=== PATIENT | male | born 1965 | race Caucasian/White ===

== ENCOUNTER 2017-09-05 06:03 | Inpatient (IN) | payer OTHER ==
[2017-09-05] VITALS (7 sets, daily range): BP systolic 103–177; BP diastolic 68–99; PULSE 76–104; TEMP 36.3–36.9; O2SAT 90–97; Ht 190.5 cm; Wt 193.2 kg
[~2017-09-05] VITALS: Ht 190.5 cm; Wt 193.2 kg
[2017-09-05] MEDS ORDERED: OPTIRAY 320 IV PRN (06:30)
[2017-09-05 06:35] LABS: BASO % 0.3 %; BASO ABS # 0.02 K/uL (0-0.2); EOS % 2.3 %; EOS ABS # 0.16 K/uL (0-0.5); HEMATOCRIT 47.5 % (42-52); HEMOGLOBIN 16.2 g/dL (14.0-18.0); IG# 0.02 K/uL (0.00-0.02); LYMPH % 22.7 %; LYMPH ABS # 1.58 K/uL (1.2-3.4); MEAN CELL VOLUME 86.2 fL (80-100); MEAN CORPUSCULAR HEMOGLOBIN 29.4 pg (25-34); MEAN CORPUSCULAR HGB CONC 34.1 g/dl (32-36); MEAN PLATELET VOLUME 9.4 fL (7.4-10.4); MONO % 10.1 %; NEUT % 64.3 %; NEUT ABS # 4.48 K/uL (1.4-6.5); PLATELET COUNT 193 K/uL (130-400); RED CELL DISTRIBUTION WIDTH CV 13.7 % (11.5-14.5); RED CELL DISTRIBUTION WIDTH SD 43.1 fL (36.4-46.3); WHITE BLOOD COUNT 6.96 K/uL (4.8-10.8)
[2017-09-05 06:37] LABS: ISTAT CREATININE 1.2 mg/dl (0.6-1.3); ISTAT IONIZED CALCIUM 1.08 mmol/l (1.12-1.32); ISTAT POTASSIUM 3.8 mEq/L (3.3-5.0)
[2017-09-05 06:48] LABS: PTT PATIENT 28.2 SECONDS (21.0-31.0)
[2017-09-05 06:55] LABS: ALBUMIN 3.7 gm/dl (3.4-5.0); CALCIUM 8.6 mg/dl (8.5-10.1); CREATININE 1.28 mg/dl (0.60-1.40); TOTAL PROTEIN 8.6 gm/dl (6.4-8.2)
[2017-09-05] MEDS ORDERED: IPRA1AER2 INH (06:55)
[2017-09-05] MEDS ORDERED: ASPI325T39 PO (06:55)
[2017-09-05] MEDS ORDERED: SYMIN160 INH (06:55)
[2017-09-05 06:59] LABS: POTASSIUM 3.7 mmol/L (3.5-5.1)
--- NOTE | 2017-09-05 07:00 | EMERGENCY ROOM VISIT NOTE ---
ED Visit Note First contact with patient: 06:12 I have personally evaluated and examined this patient. I agree with assessment and plan of Gwendolyn Enriquez PA-C. Diaphoretic, hypoxic, tachycardic male with substernal chest pain and Shortness of breath arrives from home. History of PE last on Coumadin 7 years ago. Admits he has been quite inactive over last few months. No travel. CT showing bilateral extensive PEs. Not hypotensive. He is oxygenating much better on NC O2 but is still diaphoretic and unwell appearing. Discussed at length heparin risks/benefits with patient, including head, chest, aorta, abdominal, gi bleeding, etc. He is willing to proceed with heparin given acuity of his symptoms and risks of worsening.
[2017-09-05] MEDS ORDERED: HEPARIN 25000 UNIT/500 ML D5W ONE (07:02)
[2017-09-05] MEDS ORDERED: HEPARIN SOD 5000 UNIT/0.5 ML CARP ONE (07:02)
--- NOTE | 2017-09-05 07:15 | DIAGNOSTIC IMAGING REPORT ---
CHEST CTA for AORTIC DISSECTION CT DOSE: 3015.20 mGy.cm HISTORY: Short of breath. TECHNIQUE: Multiaxial CT images of the chest were performed both before and after the intravenous administration of contrast to evaluate the aorta. Maximal intensity projection images were also obtained. A dose lowering technique was utilized adhering to the principles of ALARA. COMPARISON STUDY: Chest 09/05/2017. FINDINGS: Noncontrast imaging through the chest shows no evidence for an intramural hematoma. Normal caliber thoracic aorta with no evidence for dissection. Extensive bilateral pulmonary emboli involving the distal main pulmonary arteries and extending into the majority of the lobar and segmental pulmonary arteries. There is also a saddle embolus identified. There is associated moderate to severe right-sided heart strain. No pleural or pericardial effusions. No mediastinal or hilar lymphadenopathy. Hepatic steatosis. A 4.5 cm cyst within the left kidney. Normal adrenal glands. No fractures within the visualized osseous structures. No pneumothorax. The central airways are patent. A few groundglass densities seen within the right lower lobe posteriorly and within the lingula. This is nonspecific and could be due to mild dependent change or possibly developing pulmonary infarcts. IMPRESSION: 1. Extensive bilateral pulmonary emboli including a saddle embolus with associated right-sided heart strain. 2. A few small groundglass densities within the lingula and right lower lobe which may be due to dependent change or developing pulmonary infarcts. 3. No evidence for an aortic dissection. 4. These findings were called to Dr. Shoemaker at 7:12 AM on 09/05/2017. Electronically signed by: Abad Sahu M.D. 09/05/2017 7:14 AM Dictated Date/Time: 09/05/2017 7:07 AM
--- NOTE | 2017-09-05 08:06 | DIAGNOSTIC IMAGING REPORT ---
CHEST ONE VIEW PORTABLE HISTORY: Atypical CHEST PAIN COMPARISON: Chest 04/17/2016. FINDINGS: The heart is mildly enlarged. Mild interstitial thickening which the chronic. No new focal lung consolidations. No pleural effusions. No pneumothorax. IMPRESSION: 1. Mild cardiomegaly. 2. Mild interstitial thickening which may be chronic. Electronically signed by: Abad Sahu M.D. 09/05/2017 8:05 AM Dictated Date/Time: 09/05/2017 8:03 AM
[2017-09-05] MEDS ORDERED: DEXTROSE 50% 50 ML SYR IV PRN (08:15)
[2017-09-05] MEDS ORDERED: GLUCAGON FOR INJ 1 MG VIAL SQ PRN (08:15)
[2017-09-05] MEDS ORDERED: GLUCOSE 40% GEL 15 GM TUBE PO PRN (08:15)
[2017-09-05] MEDS ORDERED: ACETAMINOPHEN 325 MG TAB PO PRN (08:15)
[2017-09-05] MEDS ORDERED: POLYETHYLENE (MIRALAX) 17 GM PACK PO PRN (08:15)
[2017-09-05] MEDS ORDERED: ONDANSETRON INJ 2 MG/ML 2 ML VIAL IV PRN (08:15)
[2017-09-05] MEDS ORDERED: GLUCOSE 10 TABS/TUBE PO PRN (08:15)
--- NOTE | 2017-09-05 08:15 | NUR ---
A/ID: 52 year old male in ED.c/o substernal chest pain, Radiology report of pulmonary emboli. Possible admission/observation. Admission Assessment done. Code Word/Fall Agreement reviewed with patient and completed. Continued care in ED by MODE Jo.
[2017-09-05] MEDS ORDERED: OXYCODONE/ACETAMINOPHEN 5-325 TAB PO PRN (08:30)
[2017-09-05] MEDS ORDERED: IPRATROPIUM BROMIDE/ALBUTEROL respimat INH INH PRN (08:30)
--- NOTE | 2017-09-05 08:32 | Critical Care Consultation ---
Critical Care Consultation Date of Consultation: Sep 05, 2017. 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 He started to feel bad approximately 3-4 days ago and then developed worsening cough chest pain shortness of breath. He presented to [facility] emergency department for further evaluation. A CT scan was obtained which revealed bilateral PEs. I was requested to evaluate the patient further. 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 [employer] ) Allergies Coded Allergies: No Known Allergies (Unverified , 09/05/17) Home Medications Scheduled Aspirin (Aspirin Ec), 325 MG PO DAILY Budesonide/Formoterol Fumarate (Symbicort 160/4.5 Inhaler ), 2 PUFFS INH BID Scheduled PRN Ipratropium-Albuterol (Combivent Respimat), 1 PUFFS INH QID PRN for Shortness of Breath Current Inpatient Medications Current Inpatient Medications Medications (Trade) Dose Ordered Sig/Junito Route Start Time Stop Time Status Last Admin Dose Admin Ioversol (Optiray 320) 125 ml UD PRN IV 09/05/17 06:30 09/09/17 06:29 Review of Systems 10 point review of systems has been obtained and is otherwise negative Constitutional: + weakness, + fatigue Eyes: No worsening of vision, No eye pain, No redness, No discharge, No diplopia, No problem reported Respiratory: + cough, + shortness of breath, + dyspnea on exertion, + dyspnea at rest, No sputum, No wheezing, No hemoptysis Cardiovascular: + chest pain, + orthopnea, No edema Musculoskeletal: + joint pain Genitourinary - Male: No hematuria, No dysuria, No urinary frequency, No urinary urgency, No urinary hesitancy, No urinary retention, No urinary incontinence, No penile discharge, No lesions, No impotence, No problem reported Neurologic: No memory loss, No paralysis, No weakness, No numbness/tingling, No vertigo, No balance problems, No problem reported Endocrine: + fatigue Hematologic / Lymphatic: + clotting problems, No swollen lymph nodes, No night sweats Integumentary: No rash Physical Exam Date Time Temp Pulse Resp B/P (MAP) Pulse Ox O2 Delivery O2 Flow Rate FiO2 09/05/17 07:52 103 24 125/89 93 Nasal Cannula 3.0 09/05/17 07:16 100 24 120/87 92 Room Air 09/05/17 06:57 101 09/05/17 06:51 101 23 154/91 92 Nasal Cannula 09/05/17 06:15 93 Nasal Cannula 3.0 09/05/17 06:15 93 Nasal Cannula 3.0 09/05/17 06:05 36.4 118 26 129/80 87 Room Air General Appearance: WD/WN, no apparent distress Head: normocephalic, atraumatic Eyes: PERRLA Neck: normal range of motion, no tenderness, trachea midline, no stridor Respiratory: breath sounds normal Cardiovasular: irregular rate Abdomen: non tender, no rebound, no masses, other (rotund) Upper Extremities: no edema Lower Extremities: edema (+1) Edema: Bilateral LE (1+) Pulses: radial (R) (2+), radial (L) (2+) Neuro: alert, oriented x 3, normal motor exam Psychiatric: normal affect Laboratory Results Last 24 Hours Test 09/05/17 06:20 09/05/17 06:24 09/05/17 07:09 White Blood Count 6.96 K/uL Red Blood Count 5.51 M/uL Hemoglobin 16.2 g/dL Hematocrit 47.5 % Mean Corpuscular Volume 86.2 fL Mean Corpuscular Hemoglobin 29.4 pg Mean Corpuscular Hemoglobin Concent 34.1 g/dl Platelet Count 193 K/uL Mean Platelet Volume 9.4 fL Neutrophils (%) (Auto) 64.3 % Lymphocytes (%) (Auto) 22.7 % Monocytes (%) (Auto) 10.1 % Eosinophils (%) (Auto) 2.3 % Basophils (%) (Auto) 0.3 % Neutrophils # (Auto) 4.48 K/uL Lymphocytes # (Auto) 1.58 K/uL Monocytes # (Auto) 0.70 K/uL Eosinophils # (Auto) 0.16 K/uL Basophils # (Auto) 0.02 K/uL RDW Standard Deviation 43.1 fL RDW Coefficient of Variation 13.7 % Immature Granulocyte % (Auto) 0.3 % Immature Granulocyte # (Auto) 0.02 K/uL Prothrombin Time 10.5 SECONDS Prothromb Time International Ratio 1.0 Activated Partial Thromboplast Time 28.2 SECONDS Partial Thromboplastin Ratio 1.1 Sodium Level 133 mmol/L Potassium Level 3.7 mmol/L Chloride Level 99 mmol/L Carbon Dioxide Level 23 mmol/L Anion Gap 11.0 mmol/L 16.0 mmol/L Blood Urea Nitrogen 16 mg/dl Creatinine 1.28 mg/dl Est Creatinine Clear Calc Drug Dose 125.3 ml/min Estimated GFR () 73.6 Estimated GFR (Non- 63.5 BUN/Creatinine Ratio 12.5 Random Glucose 168 mg/dl Calcium Level 8.6 mg/dl Total Bilirubin 1.0 mg/dl Direct Bilirubin 0.2 mg/dl Aspartate Amino Transf (AST/SGOT) 50 U/L Alanine Aminotransferase (ALT/SGPT) 26 U/L Alkaline Phosphatase 86 U/L Troponin I 0.357 ng/ml Pro-B-Type Natriuretic Peptide 86 pg/ml Total Protein 8.6 gm/dl Albumin 3.7 gm/dl Lipase 195 U/L Bedside Hemoglobin 15.6 g/dl Bedside Hematocrit 46 % Bedside Sodium 136 mEq/L Bedside Potassium 3.8 mEq/L Bedside Chloride 98 mEq/L Bedside Total CO2 26 mEq/l Bedside Blood Urea Nitrogen 18 mg/dl Bedside Creatinine 1.2 mg/dl Bedside Glucose (other) 177 mg/dl Bedside Ionized Calcium (Shea) 1.08 mmol/l Bedside Troponin I 0.230 ng/ml Diagnostic Results I have reviewed the images of the CT scan dated 09/05/2017 as well as the radiology report Assessment & Plan PLAN: Neuro: Chronic musculoskeletal pain * Patient currently takes Ultram Resp: Submassive pulmonary embolism * PESI score 113 (class IV) * on heparin infusion * I suspect this is acute on chronic pulmonary embolism given his prior history and several days of prodrome * Discussed risks and benefits of catheter directed thrombolysis versus admission and systemic anticoagulation * Joint medical decision making the patient opts for systemic anticoagulation * At risk for pulmonary hypertension, venous thromboembolic disease and likely undiagnosed HAN CV: Elevated troponins * Echocardiogram Fluids/Renal: Generous fluids to maintain preload Heme: Venous thromboembolic disease * Will require lifelong anticoagulation Endocrine: Hyperglycemia * Reported history of diabetes * Stopped taking medication secondary to made him feel bad * Check hemoglobin A1c Discussed with Dr. Ingram. Will admit to telemetry. Patient CODE STATUS: full. If patient experienced cardiac arrest would give 10 mg IV TPA over 2 minutes followed up by 40 mg over 2 hours.
--- NOTE | 2017-09-05 09:05 | NUR ---
A Note:Patient alert and oriented X 4, Denies Chest pain thus far, Neri, recovers w/ rest and oxygen, continues on Oxygen @ 2L/Nc, Pox Mid 90's noted. Heparin Gtt Infusing @ 48 ML/HR/2400 Units per protocol. BSG 174, No Diabetic Imbalance noted. See EMR for ED admission assessment by MODE Chung ADT. court monitor applied on, Tachycardia, Heart rate Low to Mid 100's noted. Will continue to monitor and update MD as needed. Call frsaer within reach.
--- NOTE | 2017-09-05 09:22 | History and Physical ---
History & Physical Date & Time of Service: Sep 05, 2017 at 08:43 Chief Complaint: Chest Pain,O2 Down To 75 Primary Care Physician: Sylvia Watson History of Present Illness Source: patient This patient is a 52-year-old male with a history of morbid obesity, pulmonary embolism from sedentary lifestyle in 2009 treated with Coumadin 3 months, unspecified chronic lung disease (not COPD, asthma, states "collapsed lungs at the bases"), hyperlipidemia, osteoarthritis, and diet controlled diabetes mellitus type 2, who presents to the ER with worsening shortness of breath over the last 3 days with mildly productive cough, followed by sudden onset of massive chest pain this morning. He checked his pulse ox at home and it was in the 70s. In the ER, he was found to have extensive bilateral pulmonary emboli along with a saddle embolus. He had evidence of associated moderate to severe right heart strain on CT scan, as well as evidence of right heart strain on ECG. He was acutely hypoxic in the low 80s which improved with supplemental oxygen. His blood pressure was above 100 systolic. At the time I saw him, his chest pain was a 5/10 and located in the substernal region, his shortness of breath was improved on oxygen. He reports increased right leg pain and swelling in the last few days. He is otherwise been feeling well other than his chronic respiratory issues. No recent flulike symptoms, no fevers, no abdominal pain, no new joint pains or myalgias. The tree tapping laborer was consulted in the ER and his PESI score was calculated to be 113 which gives him a high risk of mortality at 30 days of 4-11%. However, because of his history of likely chronic venous thromboembolic disease, he was tolerating his massive clot burden. We discussed with the patient the option of catheter directed thrombectomy requiring transfer to a tertiary care center versus TPA, versus heparinization alone, all with similar outcomes most likely in his scenario. The patient wishes to stay at this hospital and received IV heparin. He is admitted for bilateral pulmonary emboli with saddle embolus. 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 Diabetes mellitus type 2-diet controlled Hyperlipidemia Osteoarthritis of the knees Unspecified chronic lung disease-" collapsed lungs at the bases" PSH: None Family History Mom recently passed with the age 75 from COPD Brother-healthy Social History Smoking Status: Never Smoker Smokeless Tobacco Use: Yes Alcohol Use: none (last use in 2005) Drug Use: none Marital Status: single (and no children) Housing status: lives alone Occupational Status: retired (has not worked since 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; was in the [employer] prior to that), other (former [employer] ) Allergies Coded Allergies: No Known Allergies (Unverified , 09/05/17) Home Medications Scheduled Aspirin (Aspirin Ec), 325 MG PO DAILY Budesonide/Formoterol Fumarate (Symbicort 160/4.5 Inhaler ), 2 PUFFS INH BID Scheduled PRN Ipratropium-Albuterol (Combivent Respimat), 1 PUFFS INH QID PRN for Shortness of Breath Review of Systems Constitutional: No fever, No chills Eyes: No problem reported ENT: No problem reported Respiratory: + cough, + sputum, + shortness of breath Cardiovascular: + chest pain, + edema Abdomen: No pain, No nausea, No vomiting, No diarrhea, No constipation, No GI bleeding Musculoskeletal: + joint pain (chronic in the knees) Genitourinary - Male: No problem reported Neurologic: No problem reported Psychiatric: No problem reported Endocrine: No problem reported Hematologic / Lymphatic: No abnormal bleeding/bruising (no history of bleeding at all, has never had a colonoscopy) Integumentary: No bleeding, No problem reported Allergic / Immunologic: No problem reported Physical Exam Vital Signs Date Time Temp Pulse Resp B/P (MAP) Pulse Ox O2 Delivery O2 Flow Rate FiO2 09/05/17 08:27 102 22 124/91 96 Nasal Cannula 3.0 09/05/17 08:15 93 Nasal Cannula 3.0 09/05/17 07:52 103 24 125/89 93 Nasal Cannula 3.0 09/05/17 07:16 100 24 120/87 92 Room Air 09/05/17 06:57 101 09/05/17 06:51 101 23 154/91 92 Nasal Cannula 09/05/17 06:15 93 Nasal Cannula 3.0 09/05/17 06:15 93 Nasal Cannula 3.0 09/05/17 06:05 36.4 118 26 129/80 87 Room Air General Appearance: no apparent distress, + obese (morbidly) Head: normocephalic, atraumatic Eyes: normal inspection, EOMI, sclerae normal ENT: hearing grossly normal, pharynx normal Neck: trachea midline Respiratory/Chest: no respiratory distress, no accessory muscle use, + decreased breath sounds (at the bases bilaterally) Cardiovascular: no murmur, + tachycardia (with regular rhythm), + pertinent finding (right leg with 2+ pitting edema and tenderness in the calf, left leg no edema) Abdomen/GI: normal bowel sounds, non tender, soft (and obese) Back: normal inspection Extremities/Musculoskelatal: + swelling (as above) Neurologic/Psych: no motor/sensory deficits, alert, normal mood/affect, oriented x 3 Skin: normal color, warm/dry, no rash Diagnostics Laboratory Results Results Past 24 Hours Test 09/05/17 06:20 09/05/17 06:24 09/05/17 07:09 Range/Units White Blood Count 6.96 4.8-10.8 K/uL Red Blood Count 5.51 4.7-6.1 M/uL Hemoglobin 16.2 14.0-18.0 g/dL Hematocrit 47.5 42-52 % Mean Corpuscular Volume 86.2 80-100 fL Mean Corpuscular Hemoglobin 29.4 25-34 pg Mean Corpuscular Hemoglobin Concent 34.1 32-36 g/dl Platelet Count 193 130-400 K/uL Mean Platelet Volume 9.4 7.4-10.4 fL Neutrophils (%) (Auto) 64.3 % Lymphocytes (%) (Auto) 22.7 % Monocytes (%) (Auto) 10.1 % Eosinophils (%) (Auto) 2.3 % Basophils (%) (Auto) 0.3 % Neutrophils # (Auto) 4.48 1.4-6.5 K/uL Lymphocytes # (Auto) 1.58 1.2-3.4 K/uL Monocytes # (Auto) 0.70 0.11-0.59 K/uL Eosinophils # (Auto) 0.16 0-0.5 K/uL Basophils # (Auto) 0.02 0-0.2 K/uL RDW Standard Deviation 43.1 36.4-46.3 fL RDW Coefficient of Variation 13.7 11.5-14.5 % Immature Granulocyte % (Auto) 0.3 % Immature Granulocyte # (Auto) 0.02 0.00-0.02 K/uL Prothrombin Time 10.5 9.0-12.0 SECONDS Prothromb Time International Ratio 1.0 0.9-1.1 Activated Partial Thromboplast Time 28.2 21.0-31.0 SECONDS Partial Thromboplastin Ratio 1.1 Sodium Level 133 136-145 mmol/L Potassium Level 3.7 3.5-5.1 mmol/L Chloride Level 99 98-107 mmol/L Carbon Dioxide Level 23 21-32 mmol/L Anion Gap 11.0 16.0 16-25 mmol/L Blood Urea Nitrogen 16 7-18 mg/dl Creatinine 1.28 0.60-1.40 mg/dl Est Creatinine Clear Calc Drug Dose 125.3 ml/min Estimated GFR () 73.6 Estimated GFR (Non- 63.5 BUN/Creatinine Ratio 12.5 10-20 Random Glucose 168 70-99 mg/dl Calcium Level 8.6 8.5-10.1 mg/dl Total Bilirubin 1.0 0.2-1 mg/dl Direct Bilirubin 0.2 0-0.2 mg/dl Aspartate Amino Transf (AST/SGOT) 50 15-37 U/L Alanine Aminotransferase (ALT/SGPT) 26 12-78 U/L Alkaline Phosphatase 86 45-117 U/L Troponin I 0.357 0-0.045 ng/ml Pro-B-Type Natriuretic Peptide 86 0-900 pg/ml Total Protein 8.6 6.4-8.2 gm/dl Albumin 3.7 3.4-5.0 gm/dl Lipase 195 73-393 U/L Bedside Hemoglobin 15.6 14.0-18.0 g/dl Bedside Hematocrit 46 42-52 % Bedside Sodium 136 135-144 mEq/L Bedside Potassium 3.8 3.3-5.0 mEq/L Bedside Chloride 98 101-112 mEq/L Bedside Total CO2 26 24-31 mEq/l Bedside Blood Urea Nitrogen 18 7-18 mg/dl Bedside Creatinine 1.2 0.6-1.3 mg/dl Bedside Glucose (other) 177 70-99 mg/dl Bedside Ionized Calcium (Shea) 1.08 1.12-1.32 mmol/l Bedside Troponin I 0.230 0-0.045 ng/ml Diagnostic Radiology Chest x-ray images personally reviewed by me and agree with report: 1. Mild cardiomegaly. 2. Mild interstitial thickening which may be chronic. CTA chest personally reviewed by me and agree with report: 1. Extensive bilateral pulmonary emboli including a saddle embolus with associated right-sided heart strain. 2. A few small groundglass densities within the lingula and right lower lobe which may be due to dependent change or developing pulmonary infarcts. 3. No evidence for an aortic dissection. EKG Sinus tachycardia at 105, evidence of RVH and right axis deviation, inferior infarct Impression Assessment and Plan This patient is a 52-year-old male with a history of morbid obesity, pulmonary embolism from sedentary lifestyle in 2009 treated with Coumadin 3 months, unspecified chronic lung disease (not COPD, asthma, states "collapsed lungs at the bases"), hyperlipidemia, osteoarthritis, and diet controlled diabetes mellitus type 2, who presents to the ER with worsening shortness of breath over the last 3 days with mildly productive cough, followed by sudden onset of massive chest pain and worsening shortness of breath. He was found to have extensive bilateral pulmonary emboli along with a saddle embolus. He had evidence of associated moderate to severe right heart strain on CT scan, as well as evidence of right heart strain on ECG. He was acutely hypoxic in the low 80s which improved with supplemental oxygen. His blood pressure was above 100 systolic. He reports increased right leg pain and swelling in the last few days. Extensive bilateral PEs/saddle embolus/likely CTED-The tree tapping laborer was consulted in the ER and his PESI score was calculated to be 113 which gives him a high risk of mortality at 30 days of 4-11%. However, because of his history of likely chronic venous thromboembolic disease, he was tolerating his massive clot burden. We discussed with the patient the option of catheter directed thrombectomy requiring transfer to a tertiary care center versus TPA, versus heparinization alone, all with similar outcomes most likely in his scenario. The patient wishes to stay at this hospital and received IV heparin. He has no history of bleeding issues. proBNP is actually normal at 86 -Admit to telemetry unit -Begin IV heparinization as well as overlap therapy with Coumadin and he will need lifelong anticoagulation at this point -Check echo to assess RV and LV function -Supplemental oxygen as needed and wean as tolerated to keep pulse ox greater than 92% -Normal saline at 100 ML's per hour to keep blood pressure up and watch for worsening heart failure -Consult pulmonary -Venous Dopplers were ordered in the ER and are still [id number] resolved -Percocet for pain control and watch for hypotension - will need cardiopulmonary rehabilitation after discharge -Follow CBC, PT/INR/PTT, will need overlap therapy for 5 days unless a contraindication arises -Follow chest x-ray -If acutely decompensates, would consider half dose TPA and urgent consultation with tree tapping laborer Elevated troponin-most likely due to massive PE and heart strain, no previous history of CAD -Trend troponin -Is on heparin drip -Checking echocardiogram -Continue aspirin 81 mg daily -Add on statin, check lipid panel -Follow ECG daily -Consider cardiology consult if significantly worsens Diabetes mellitus type 2-diet controlled -Check hemoglobin A1c in the morning -Accu-Cheks with meals and at bedtime, SSI Hyperlipidemia-checking lipid panel and adding statin as above Chronic lung disease-suspect mixed restrictive due to body habitus and obstructive given that his symptoms improved with bronchodilators -Continue home Cymbalta and Combivent when necessary Prophylaxis-heparin drip Disposition-eventually to home when medically stable FULL CODE Level of Care Telemetry Advanced Directives Existing Living Will: No Existing Power of Dairy Farmworker: No Resuscitation Status FULL RESUSCITATION VTE Prophylaxis VTE Risk Assessment Done? Y/N: Yes Risk Level: High Given or contraindicated: Unfractionated heparin SQ Note Total Time: Critical Care 30 - 74 minutes Additional Copies To Sylvia Watson
[2017-09-05] MEDS ORDERED: ASPIRIN 81 MG ECTAB PO ONE (09:30)
[2017-09-05] MEDS: SODIUM CHLORIDE 0.9% 1000ML 1,000 ML IV SCH ×2 (09:41→19:39)
[2017-09-05] MEDS: BUDESONIDE/FORMOTEROL FUMARATE 160/4.5 60 PUFFS/INHALER INH SCH ×2 (09:49→20:38)
[2017-09-05] MEDS: INSULIN ASPART 100 UNITS/ML 3 ML PEN SC SCH ×3 (11:03→20:37)
--- NOTE | 2017-09-05 12:00 | NUR ---
A Note: Systems unchanged thus far, Vss. See EMR for full assessment. environmental monitoring technician applied on, Tachycardia, Heart rate Mid 100's noted. Will continue to monitor and update MD as needed. Call fraser within reach.
--- NOTE | 2017-09-05 13:33 | Pulmonary Consultation ---
History General Date of Service: Sep 05, 2017. Stated Complaint: Pulmonnary Embolism HPI The patient is a 52 year old male who presents to [facility] with complaints of Pulmonnary Embolism. The patient's primary care provider is Sylvia Watson. Mr. Fuentes is a 52-year-old male with past medical history of previous morbid obesity with a BMI of 56.5, obstructive sleep apnea noncompliant with CPAP, unprovoked pulmonary embolism in 2009, nephrolithiasis and osteoarthritis who presents to the ER this morning with acute shortness of breath, dyspnea on exertion associated with diarrhea paresis and midsternal chest pain upon awakening. He describes pain as pressure-like. Home pulse oximetry showed a showed an SaO2 of 76%. He states that he is baseline SaO2 ranges between 88-92% . He admits to being more sedentary over the last 3 days after hunting season. He denies any fevers, chills, or cough. He denies any sick contacts or recent travel. He denies any family history or personal history of thrombophilia, trauma, hospitalization, or recent surgery. He does admit to intermittent paroxysmal nocturnal dyspnea, orthopnea and lower extremity swelling. He states that right lower extremity has increased in size greater than the left lower extremity. He denies any palpitations, lightheadedness, dizziness or near syncope/syncope episodes. He states over the last month, he has had decreased appetite associated with weight loss but is unable to quantify. He denies any genitourinary or bowel complaints. Upon arrival to the ER his temperature was 36.4, pulse 118, respiratory rate 26 , blood pressure 129/80, SaO2 87% on room air. He was subsequently placed on 3 L nasal cannula with improvement to 93%. Laboratory data showed normal CBC. Chemistry showed a sodium of 133, BUN 16, creatinine 1.28. Troponin 0.357 and BNP 86. Chest x-ray showed mild cardiomegaly and chronic interstitial thickening. CT of the chest with contrast showed extensive bilateral pulmonary emboli involving the distal main pulmonary arteries and extending into the lobar and segmental pulmonary arteries. Saddle embolus identified with moderate to severe right sided heart strain. A few groundglass opacities were seen in the right lower lobe and within the lingula. At the time of my evaluation, patient states that he is a little bit better. He continues to have persistent midsternal nonradiating chest pain. Historian: patient Onset: just prior to arrival Review of Systems Constitutional: reports: as stated in HPI Eyes: reports: as stated in HPI ENT: reports: as stated in HPI Cardiovascular: reports: as stated in HPI Gastrointestinal: reports: as stated in HPI Genitourinary - Male: reports: as stated in HPI Musculoskeletal: reports: as stated in HPI, arthralgias Integumentary: reports: as stated in HPI Neurologic: reports: as stated in HPI Psychiatric: reports: as stated in HPI Endocrine: as stated in HPI Hematologic / Lymphatic: as stated in HPI Allergic / Immunologic: as stated in HPI All Other Symptoms All Other Systems: Reviewed and Negative Past Medical History Past Medical History: Pulmonary embolus Nephrolithiasis Morbid obesity Obstructive sleep apnea Family History Mother 06/03/2017-vent dependent respiratory failure secondary to COPD Father . Had history of COPD. from complications of hip fracture. Social History Lives alone. Denies any alcohol or illicit drug use. Denies any tobacco use. 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 Hx Tobacco Use In Past Year?: No Smoking Status: Never Smoker Marital status: single (and no children) Housing status: lives alone Occupational Status: retired (has not worked since 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; was in the [employer] prior to that), other (former [employer] ) Allergies Coded Allergies: No Known Allergies (Unverified , 09/05/17) Current Medications Reported Home Medications Medications Dose Route/Sig Max Daily Dose Days Date Category Aspirin Ec (Aspirin) 325 Mg Tab 325 Mg PO DAILY 09/05/17 Reported Combivent Respimat (Ipratropium-Albuterol) 1 Aer Aer 1 Puffs INH QID PRN 09/05/17 Reported Symbicort 160/4.5 Inhaler (Budesonide/Formoterol Fumarate) Aero 2 Puffs INH BID 09/05/17 Reported Physical Physical Exam Vital Signs: Date Time Temp Pulse Resp B/P (MAP) Pulse Ox O2 Delivery O2 Flow Rate FiO2 09/05/17 11:30 36.3 102 20 134/80 (98) 90 3.0 09/05/17 09:05 36.4 104 20 120/93 (102) 93 Nasal Cannula 2.0 09/05/17 08:27 102 22 124/91 96 Nasal Cannula 3.0 09/05/17 08:15 93 Nasal Cannula 3.0 09/05/17 07:52 103 24 125/89 93 Nasal Cannula 3.0 09/05/17 07:16 100 24 120/87 92 Room Air 09/05/17 06:57 101 09/05/17 06:51 101 23 154/91 92 Nasal Cannula 09/05/17 06:15 93 Nasal Cannula 3.0 09/05/17 06:15 93 Nasal Cannula 3.0 09/05/17 06:05 36.4 118 26 129/80 87 Room Air General Appearance: uncomfortable, other (morbidly obese male, no acute respiratory distress) Head: NORMOCEPHALIC, ATRAUMATIC Eyes: PERRLA, NO DISCHARGE, EOMI, SCLERAE NORMAL ENT: NORMAL MOUTH EXAM, NORMAL THROAT EXAM, poor dentition Neck: NORMAL RANGE OF MOTION, NO TENDERNESS, TRACHEA MIDLINE, NO STRIDOR, NO LYMPHADENOPATHY Respiratory: other (diminished breath sounds bilaterally secondary to obese body habitus) Cardiovasular: REGULAR RATE/RHYTHM, NORMAL S1S2 Abdomen: NON TENDER, NORMAL BOWEL SOUNDS, other (obese abdomen) Back: NORMAL INSPECTION, NO MIDLINE TENDERNESS Upper Extremities: NO EDEMA, NO DEFORMITY, NORMAL ROM Lower Extremities: NO DEFORMITY, NORMAL ROM Edema: RLE (3+), LLE (2+) Pulses: dorsalis pedis (R) Neuro: ALERT, ORIENTED x 3, NORMAL MOTOR EXAM Psychiatric: NORMAL AFFECT, NO SUICIDAL IDEATION, CONTRACTS FOR SAFETY Diagnostics Labs Results Past 24 Hours Test 09/05/17 06:20 09/05/17 06:24 09/05/17 07:09 09/05/17 09:37 Range/Units White Blood Count 6.96 4.8-10.8 K/uL Red Blood Count 5.51 4.7-6.1 M/uL Hemoglobin 16.2 14.0-18.0 g/dL Hematocrit 47.5 42-52 % Mean Corpuscular Volume 86.2 80-100 fL Mean Corpuscular Hemoglobin 29.4 25-34 pg Mean Corpuscular Hemoglobin Concent 34.1 32-36 g/dl Platelet Count 193 130-400 K/uL Mean Platelet Volume 9.4 7.4-10.4 fL Neutrophils (%) (Auto) 64.3 % Lymphocytes (%) (Auto) 22.7 % Monocytes (%) (Auto) 10.1 % Eosinophils (%) (Auto) 2.3 % Basophils (%) (Auto) 0.3 % Neutrophils # (Auto) 4.48 1.4-6.5 K/uL Lymphocytes # (Auto) 1.58 1.2-3.4 K/uL Monocytes # (Auto) 0.70 0.11-0.59 K/uL Eosinophils # (Auto) 0.16 0-0.5 K/uL Basophils # (Auto) 0.02 0-0.2 K/uL RDW Standard Deviation 43.1 36.4-46.3 fL RDW Coefficient of Variation 13.7 11.5-14.5 % Immature Granulocyte % (Auto) 0.3 % Immature Granulocyte # (Auto) 0.02 0.00-0.02 K/uL Prothrombin Time 10.5 9.0-12.0 SECONDS Prothromb Time International Ratio 1.0 0.9-1.1 Activated Partial Thromboplast Time 28.2 21.0-31.0 SECONDS Partial Thromboplastin Ratio 1.1 Sodium Level 133 136-145 mmol/L Potassium Level 3.7 3.5-5.1 mmol/L Chloride Level 99 98-107 mmol/L Carbon Dioxide Level 23 21-32 mmol/L Anion Gap 11.0 16.0 16-25 mmol/L Blood Urea Nitrogen 16 7-18 mg/dl Creatinine 1.28 0.60-1.40 mg/dl Est Creatinine Clear Calc Drug Dose 125.3 ml/min Estimated GFR () 73.6 Estimated GFR (Non- 63.5 BUN/Creatinine Ratio 12.5 10-20 Random Glucose 168 70-99 mg/dl Calcium Level 8.6 8.5-10.1 mg/dl Total Bilirubin 1.0 0.2-1 mg/dl Direct Bilirubin 0.2 0-0.2 mg/dl Aspartate Amino Transf (AST/SGOT) 50 15-37 U/L Alanine Aminotransferase (ALT/SGPT) 26 12-78 U/L Alkaline Phosphatase 86 45-117 U/L Troponin I 0.357 0-0.045 ng/ml Pro-B-Type Natriuretic Peptide 86 0-900 pg/ml Total Protein 8.6 6.4-8.2 gm/dl Albumin 3.7 3.4-5.0 gm/dl Lipase 195 73-393 U/L Bedside Hemoglobin 15.6 14.0-18.0 g/dl Bedside Hematocrit 46 42-52 % Bedside Sodium 136 135-144 mEq/L Bedside Potassium 3.8 3.3-5.0 mEq/L Bedside Chloride 98 101-112 mEq/L Bedside Total CO2 26 24-31 mEq/l Bedside Blood Urea Nitrogen 18 7-18 mg/dl Bedside Creatinine 1.2 0.6-1.3 mg/dl Bedside Glucose (other) 177 70-99 mg/dl Bedside Ionized Calcium (Shea) 1.08 1.12-1.32 mmol/l Bedside Troponin I 0.230 0-0.045 ng/ml Bedside Glucose 174 70-99 mg/dl Diagnostic Radiology CT chest 09/05/2017 IMPRESSION: 1. Extensive bilateral pulmonary emboli including a saddle embolus with associated right-sided heart strain. 2. A few small groundglass densities within the lingula and right lower lobe which may be due to dependent change or developing pulmonary infarcts. 3. No evidence for an aortic dissection. EKG EKG 09/04/2017 Sinus tachycardia 105 bpm Right superior axis deviation Right ventricular hypertrophy Impression Assessment and Plan Morbid obesity Hypoxemia Submassive saddle pulmonary emboli Obstructive sleep apnea Obesity hypoventilation syndrome Deconditioning The patient likely has acute on chronic hypoxic respiratory. His baseline O2 saturation is between 88-92%, lowest SaO2 recorded at home 85%. He now presents with sudden onset of chest pain and worsening hypoxemia and found to have submassive saddle pulmonary emboli. Patient does admit to increased sedentary lifestyle over the last few days which may have precipitated this emboli. He does have known history of obstructive sleep apnea but unable to tolerate CPAP. Due to his body habitus he likely has a component of obesity hypoventilation syndrome as well. In regards to pulmonary embolism, this appears to be the second unprovoked event. CT chest shows increased size of pulmonary artery suggestive of right heart strain. There is some small ground glass opacities seen in the posterior segment of the right lower lobe which may represent infarction. Troponins are elevated. Nonetheless his blood pressure and hemodynamics remained stable. He has responded well to the supplemental oxygen to 3 L. At the current time, recommend that he continue his supplemental oxygen to maintain SaO2 between 88-92%. Continue with heparin drip for now. He may be subsequently transitioned over to Coumadin. He will require lifelong treatment as this is the second unprovoked event. I agree with full hypercoagulable workup. He should have age-appropriate cancer screening as well. He will likely require long-term oxygen therapy upon discharge. Obtain transthoracic echocardiogram. If he should decompensate, recommend administration of TPA. I appreciate the consult. Please contact me if you have any further questions or concerns.
--- NOTE | 2017-09-05 13:35 | DIAGNOSTIC IMAGING REPORT ---
BILATERAL LOWER EXTREMITY VENOUS DOPPLER HISTORY: Pulmonary emboli. Assess for DVT. COMPARISON STUDY: None. FINDINGS: There is normal compressibility, flow, and augmentation within the bilateral lower extremity deep venous systems. IMPRESSION: No DVT within the right or left lower extremity. Electronically signed by: Abad Sahu M.D. 09/05/2017 1:34 PM Dictated Date/Time: 09/05/2017 1:33 PM
--- NOTE | 2017-09-05 13:36 | DIAGNOSTIC IMAGING REPORT ---
BILATERAL UPPER EXTREMITY VENOUS DOPPLER HISTORY: Pulmonary blood. Assess for DVT. COMPARISON STUDY: None. FINDINGS: The internal jugular veins were nonvisualized due to patient positioning. There is normal flow within the bilateral subclavian veins. There is normal flow and compressibility within the bilateral axillary, basilic, brachial, radial, ulnar, and visualized cephalic veins. IMPRESSION: No DVT within the right or left upper extremity. Electronically signed by: Abad Sahu M.D. 09/05/2017 1:35 PM Dictated Date/Time: 09/05/2017 1:34 PM
[2017-09-05] MEDS ORDERED: PERFLUTREN LIPID MICROSPHERE (DEFINITY) IV ONE (14:16)
[2017-09-05] MEDS: STANDARD WARFARIN NOMOGRAM PO SCH (14:36)
[2017-09-05 14:56] LABS: PTT PATIENT 51.1 SECONDS (21.0-31.0)
--- NOTE | 2017-09-05 15:35 | ECHOCARDIOGRAM REPORT ---
*NOTICE TO RECEIVING CONSTITUTION PARTY AGENCY This information is strictly Confidential and protected under [place] law. [place] law prohibits you from making any further disclosure of this information unless further disclosure is expressly permitted by the written consent of the person to whom it pertains or is authorized by law. A general authorization for the release of medical or other information is not sufficient for this purpose. Hospital accepts no responsibility if the information is made available to any other person, INCLUDING THE PATIENT. Interpretation Summary * Name: EDDIE ABRAHAM Study Date: 09/05/2017 01:47 PM BP: 124/91 mmHg * Patient Location: [facility] HR: 102 * : 1965 (M/d/yyyy) Gender: Male Height: 75 in * Age: 52 yrs Ethnicity: [place] Weight: 451 lb * Ordering Physician: Alexandra Ingram * Referring Physician: Self, Referred * Performed By: Ishan Jaimes RDCS * * Reason For Study: Pulmonary Embolism * BSA: 3.1 * -- Conclusions -- * This is a severely limted study due ti the patient's body habitus and the study was done sitting in a chair. Only the parasternals and contrast images are of any diagnostic value. * The left ventricle is grossly normal size. * Ejection Fraction = 60-65%. * Left ventricular systolic function is normal. * Flattened septum is consistent with RV pressure and volume overload. * Severely dilated RV with Akinesis of the RV free wall. * PA pressures could not be assessed Procedure Details * A complete two-dimensional transthoracic echocardiogram was performed (2D, M-mode, Doppler and color flow Doppler). * The study was technically difficult. * There were technical limitations due to patient'sbody habitus * A contrast injection of Definity was performed to improve assessment of LV function. * One vial of Definity ultrasound contrast was diluted in normal saline to a total volume of 10 ml. A total of '2' ml of solution was administered during imaging. * Lot # [id number] of Definity utilized for procedure. * Expiration date . * The attending nurse who injected the contrast agent was MODE Falk. * Contrast was injected into an intravenous site in the left arm. Left Ventricle * The left ventricle is grossly normal size. * There is normal left ventricular wall thickness. * Ejection Fraction = 60-65%. * Left ventricular systolic function is normal. * Flattened septum is consistent with RV pressure/volume overload. Right Ventricle * Severely dilated RV with Akinesis of the RV free wall. Mitral Valve * The mitral valve is grossly normal. Tricuspid Valve * The tricuspid valve is not well visualized, but is grossly normal. * There is trace tricuspid regurgitation. Aortic Valve * The aortic valve is trileaflet. Pericardium/Pleural * There is no pericardial effusion. MMode 2D Measurements and Calculations IVSd 1.1 cm IVSs 1.4 cm LVIDd 4.1 cm LVIDs 2.5 cm LVPWd 1.5 cm LVPWs 1.4 cm IVS/LVPW 0.75 FS 38.0 % EDV(Teich) 73.3 ml ESV(Teich) 22.9 ml EF(Teich) 68.7 % EDV(cubed) 67.9 ml ESV(cubed) 16.2 ml EF(cubed) 76.2 % % IVS thick 24.2 % % LVPW thick -4.99 % LV mass(C)d 199.9 grams LV mass(C)dI 64.5 grams/m\S\2 LV mass(C)s 118.1 grams LV mass(C)sI 38.1 grams/m\S\2 SV(Teich) 50.4 ml SI(Teich) 16.3 ml/m\S\2 SV(cubed) 51.7 ml SI(cubed) 16.7 ml/m\S\2 Ao root diam 3.6 cm Ao root area 10.4 cm\S\2 LA dimension 2.6 cm LA/Ao 0.70 LVAd ap4 10.8 cm\S\2 LVLd ap4 4.8 cm EDV(MOD-sp4) 20.1 ml EDV(sp4-el) 20.5 ml LVAs ap4 5.8 cm\S\2 LVLs ap4 4.6 cm ESV(MOD-sp4) 6.4 ml ESV(sp4-el) 6.3 ml EF(MOD-sp4) 68.2 % EF(sp4-el) 69.5 % LVAd ap2 18.5 cm\S\2 LVLd ap2 5.4 cm EDV(MOD-sp2) 52.7 ml EDV(sp2-el) 53.5 ml LVAs ap2 9.8 cm\S\2 LVLs ap2 4.3 cm ESV(MOD-sp2) 20.0 ml ESV(sp2-el) 19.1 ml EF(MOD-sp2) 62.0 % EF(sp2-el) 64.4 % LVLd %diff 10.6 % EDV(MOD-bp) 34.4 ml LVLs %diff -6.93 % ESV(MOD-bp) 11.6 ml EF(MOD-bp) 66.2 % SV(MOD-sp4) 13.7 ml SI(MOD-sp4) 4.4 ml/m\S\2 SV(MOD-sp2) 32.7 ml SI(MOD-sp2) 10.5 ml/m\S\2 SV(MOD-bp) 22.8 ml SI(MOD-bp) 7.4 ml/m\S\2 SV(sp4-el) 14.2 ml SI(sp4-el) 4.6 ml/m\S\2 SV(sp2-el) 34.5 ml SI(sp2-el) 11.1 ml/m\S\2 Doppler Measurements and Calculations MV E max emmy 35.5 cm/sec MV A max emmy 51.3 cm/sec MV E/A 0.69 MV dec time 0.22 sec Ao V2 max 73.4 cm/sec Ao max PG 2.2 mmHg Ao max PG (full) -0.04 mmHg LV V1 max PG 2.2 mmHg LV V1 max 74.2 cm/sec PA V2 max 62.2 cm/sec PA max PG 1.5 mmHg
[2017-09-05 15:55] LABS: CKMB 3.4 ng/ml (0.5-3.6)
--- NOTE | 2017-09-05 16:00 | NUR ---
A Note: Systems unchanged thus far, Vss. See EMR for full assessment. ekg monitor tech applied on, Tachycardia, Heart rate Mid 100's noted. Will continue to monitor and update MD as needed. Call fraser within reach.
[2017-09-05] MEDS: HEPARIN 25,000 UNIT/500ML D5W 500 ML IV PRN (17:48)
--- NOTE | 2017-09-05 20:00 | NUR ---
A: Pt alert and oriented x4. Resting comfortably in bed upon assessment. Pt denies any pain or SOB at this time on 3L NC, but states that he is TORRES when repositioning in bed. Heparin infusing into L hand IV site at 48ml/hr and NSS @100ml/hr. Pt encouraged to ring for assistance. Will continue to monitor.
[2017-09-05 21:41] LABS: CKMB 2.7 ng/ml (0.5-3.6)
--- NOTE | 2017-09-05 22:10 | EMERGENCY ROOM VISIT NOTE ---
History First contact with patient: 06:12 Chief Complaint: CHEST PAIN Stated Complaint: CHEST PAIN,O2 DOWN TO 75 History of Present Illness The patient is a 52 year old male who presents to the Emergency Room with complaints of shortness of breath for the past few days steadily getting worse with nonproductive cough and chest pain this morning since 5 AM. Chest pain described as pressure, 8 out of 10 midsternal. Nothing makes it better or worse. It does not radiate. Patient denies fever, chills, hemoptysis, back pain, leg pain, abdominal pain. Patient states he is noncompliant with his medications as he does not like to take pills. He has a history of PEs in the past and was advised to continue his Coumadin but declined. He does not smoke. Patient took his pulse ox at home and was in the low 80s. He does not routinely were oxygen. Patient has had a stress test last year was normal per patient and this is done at [facility]. Review of Systems See HPI for pertinent positives & negatives. A total of 10 systems reviewed and were otherwise negative. Past Medical/Surgical History Medical Problems: (1) Pulmonary embolism Diabetes, chronic lung disease with O2 sats only 88-92% on room air, sleep apnea , hyperlipidemia, PEs Social History Smoking Status: Never Smoker Alcohol Use: none Drug Use: none Current/Historical Medications Scheduled Aspirin (Aspirin Ec), 325 MG PO DAILY Budesonide/Formoterol Fumarate (Symbicort 160/4.5 Inhaler ), 2 PUFFS INH BID Scheduled PRN Ipratropium-Albuterol (Combivent Respimat), 1 PUFFS INH QID PRN for Shortness of Breath Physical Exam Vital Signs Date Time Temp Pulse Resp B/P (MAP) Pulse Ox O2 Delivery O2 Flow Rate FiO2 09/05/17 08:15 93 Nasal Cannula 3.0 09/05/17 07:52 103 24 125/89 93 Nasal Cannula 3.0 09/05/17 07:16 100 24 120/87 92 Room Air 09/05/17 06:57 101 09/05/17 06:51 101 23 154/91 92 Nasal Cannula 09/05/17 06:15 93 Nasal Cannula 3.0 09/05/17 06:15 93 Nasal Cannula 3.0 09/05/17 06:05 36.4 118 26 129/80 87 Room Air Physical Exam VITALS: Vitals are noted on the nurse's note and reviewed by myself. Vital signs hypoxic and tachycardic GENERAL: Morbidly obese male diaphoretic working to breathe, in acute distress SKIN: The skin was without rashes, erythema, or bruising. HEAD: Normocephalic atraumatic. EARS: External auditory canals clear, tympanic membranes pearly carlton without erythema or effusion bilaterally. EYES: Pupils equal round and reactive to light and accommodation. Conjunctivae without injection, sclerae without icterus. Extraocular movements intact. NOSE: Patent, turbinates without inflammation or discharge. MOUTH: Mucous membranes moist. Pharynx without erythema or exudate. Uvula midline. Airway patent. Tongue does not deviate. NECK: Supple without nuchal rigidity. No lymphadenopathy. No thyromegaly. Cervical spine is nontender. HEART: Tachycardic rate and rhythm LUNGS: Clear to auscultation bilaterally without wheezes, rales or rhonchi. ABDOMEN: Positive bowel sounds x 4. Normal tympanic percussion. Soft, protuberant, obese, nontender, without masses or organomegaly. Brunner sign negative. No guarding or rebound tenderness. MUSCULOSKELETAL: No muscle atrophy, erythema, noted. NEURO: Patient was alert and oriented to person place and time. Normal sensation to light and sharp touch. No focal neurological deficits. Medical Decision & Procedures Laboratory Results 09/05/17 06:20 Red Blood Count 5.51, Mean Corpuscular Volume 86.2, Mean Corpuscular Hemoglobin 29.4, Mean Corpuscular Hemoglobin Concent 34.1, Mean Platelet Volume 9.4, Neutrophils (%) (Auto) 64.3, Lymphocytes (%) (Auto) 22.7, Monocytes (%) (Auto) 10.1, Eosinophils (%) (Auto) 2.3, Basophils (%) (Auto) 0.3, Neutrophils # (Auto ) 4.48, Lymphocytes # (Auto) 1.58, Monocytes # (Auto) 0.70, Eosinophils # (Auto ) 0.16, Basophils # (Auto) 0.02 09/05/17 06:20 Test 09/05/17 06:20 09/05/17 06:24 09/05/17 07:09 White Blood Count 6.96 K/uL (4.8-10.8) Red Blood Count 5.51 M/uL (4.7-6.1) Hemoglobin 16.2 g/dL (14.0-18.0) Hematocrit 47.5 % (42-52) Mean Corpuscular Volume 86.2 fL (80-100) Mean Corpuscular Hemoglobin 29.4 pg (25-34) Mean Corpuscular Hemoglobin Concent 34.1 g/dl (32-36) Platelet Count 193 K/uL (130-400) Mean Platelet Volume 9.4 fL (7.4-10.4) Neutrophils (%) (Auto) 64.3 % Lymphocytes (%) (Auto) 22.7 % Monocytes (%) (Auto) 10.1 % Eosinophils (%) (Auto) 2.3 % Basophils (%) (Auto) 0.3 % Neutrophils # (Auto) 4.48 K/uL (1.4-6.5) Lymphocytes # (Auto) 1.58 K/uL (1.2-3.4) Monocytes # (Auto) 0.70 K/uL (0.11-0.59) Eosinophils # (Auto) 0.16 K/uL (0-0.5) Basophils # (Auto) 0.02 K/uL (0-0.2) RDW Standard Deviation 43.1 fL (36.4-46.3) RDW Coefficient of Variation 13.7 % (11.5-14.5) Immature Granulocyte % (Auto) 0.3 % Immature Granulocyte # (Auto) 0.02 K/uL (0.00-0.02) Prothrombin Time 10.5 SECONDS (9.0-12.0) Prothromb Time International Ratio 1.0 (0.9-1.1) Est Creatinine Clear Calc Drug Dose 125.3 ml/min Estimated GFR () 73.6 Estimated GFR (Non- 63.5 BUN/Creatinine Ratio 12.5 (10-20) Calcium Level 8.6 mg/dl (8.5-10.1) Total Bilirubin 1.0 mg/dl (0.2-1) Direct Bilirubin 0.2 mg/dl (0-0.2) Aspartate Amino Transf (AST/SGOT) 50 U/L (15-37) Alanine Aminotransferase (ALT/SGPT) 26 U/L (12-78) Alkaline Phosphatase 86 U/L (45-117) Pro-B-Type Natriuretic Peptide 86 pg/ml (0-900) Total Protein 8.6 gm/dl (6.4-8.2) Albumin 3.7 gm/dl (3.4-5.0) Lipase 195 U/L (73-393) Bedside Hemoglobin 15.6 g/dl (14.0-18.0) Bedside Hematocrit 46 % (42-52) Bedside Sodium 136 mEq/L (135-144) Bedside Potassium 3.8 mEq/L (3.3-5.0) Bedside Chloride 98 mEq/L (101-112) Bedside Total CO2 26 mEq/l (24-31) Anion Gap 16.0 mmol/L (16-25) Bedside Blood Urea Nitrogen 18 mg/dl (7-18) Bedside Creatinine 1.2 mg/dl (0.6-1.3) Bedside Glucose (other) 177 mg/dl (70-99) Bedside Ionized Calcium (Shea) 1.08 mmol/l (1.12-1.32) Bedside Troponin I 0.230 ng/ml (0-0.045) Medications Administered Medications (Trade) Dose Ordered Sig/Junito Route Start Time Stop Time Status Last Admin Dose Admin Heparin Sodium/ Dextrose (Heparin 25,000 Unit/500ml D5W) 25,000 unit STK-MED ONCE .ROUTE 09/05/17 07:02 09/05/17 07:03 DC 09/05/17 07:12 25,000 UNIT Heparin Sodium (Porcine) (Heparin Sq 5000 Unit/0.5ml) 10,000 unit STK-MED ONCE .ROUTE 09/05/17 07:02 09/05/17 07:03 DC 09/05/17 07:10 10,000 UNIT ED Course Prior records/ancillary studies reviewed. Triage Nursing notes reviewed. The patient's history was concerning for chest pain. Differential diagnosis: Etiologies such as cardiac ischemia, aortic dissection, pulmonary embolism, pneumonia, pneumothorax, musculoskeletal, infections, pericarditis, myocarditis , esophageal rupture, gastrointestinal, as well as others were entertained. Physical examination: As above. ER treatment provided: Heparin, O2 On reassessment the patient felt better. Diagnostic interpretation by me: The electrocardiogram was normal sinus, right axis deviation, T-wave inversions in V1 and V2, rate of 105. Impression sinus tachycardia with right superior axis deviation T-wave inversions in the anteroseptal leads interpreted by myself The labs revealed elevated troponin I-STAT creatinine 1.2 Imaging studies: Chest x-ray concerning for increased pulmonary congestion without consolidation or pneumothorax per my interpretation CTA concerning for PEs CHEST CTA for AORTIC DISSECTION CT DOSE: 3015.20 mGy.cm HISTORY: Short of breath. TECHNIQUE: Multiaxial CT images of the chest were performed both before and after the intravenous administration of contrast to evaluate the aorta. Maximal intensity projection images were also obtained. A dose lowering technique was utilized adhering to the principles of ALARA. COMPARISON STUDY: Chest 09/05/2017. FINDINGS: Noncontrast imaging through the chest shows no evidence for an intramural hematoma. Normal caliber thoracic aorta with no evidence for dissection. Extensive bilateral pulmonary emboli involving the distal main pulmonary arteries and extending into the majority of the lobar and segmental pulmonary arteries. There is also a saddle embolus identified. There is associated moderate to severe right-sided heart strain. No pleural or pericardial effusions. No mediastinal or hilar lymphadenopathy. Hepatic steatosis. A 4.5 cm cyst within the left kidney. Normal adrenal glands. No fractures within the visualized osseous structures. No pneumothorax. The central airways are patent. A few groundglass densities seen within the right lower lobe posteriorly and within the lingula. This is nonspecific and could be due to mild dependent change or possibly developing pulmonary infarcts. IMPRESSION: 1. Extensive bilateral pulmonary emboli including a saddle embolus with associated right-sided heart strain. 2. A few small groundglass densities within the lingula and right lower lobe which may be due to dependent change or developing pulmonary infarcts. 3. No evidence for an aortic dissection. 4. These findings were called to Dr. Shoemaker at 7:12 AM on 09/05/2017. Electronically signed by: Abad Sahu M.D. Consultation: A consultation was placed with the [facility], hospitalist Dr Sandoval. The case was discussed and diagnostics were reviewed. The patient was evaluated in the ER for further treatment. Exam and history seem consistent with PEs. Patient was immediately started on heparin. Risks involved with the heparin were reviewed with him and patient accepts them. No history of GI bleeding in the past. Patient was reassessed multiple times. Patient was tachycardic and hypoxic. He was immediately started on heparin prior to the official read of the scans. Hypercoagulable workup was ordered. Patient was extremely short of breath and having severe chest pain. He was immediately sent for CAT scan for dissection and PE studies as he was having severe crushing chest pain, hypoxic, diaphoretic and working to breathe. He had a history of PEs. He is noncompliant with his medications. He was morbidly obese. I did have the service secretary's attempt to obtain his stress test from [facility]. Apparently his last stress test was in 2013. By the evaluation outlined above emergent etiologies such as aortic dissection, pneumonia, pneumothorax, infections, pericarditis, myocarditis, gastrointestinal, as well as others were deemed relatively unlikely. The pt informed about the findings as listed above. All questions were answered and pleased with the treatment. Case reviewed with my attending Medical Decision As above Medication Reconcilliation Current Medication List: was personally reviewed by me Blood Pressure Screening Patient's blood pressure: Normal blood pressure Impression Primary Impression: Pulmonary embolism Additional Impression: Elevated troponin Critical Care I have personally spent greater than 30 minutes of critical care time in the direct management of this patient. This includes bedside care, interpretation of diagnostic studies, and testing, discussion with consultants, patient, and family members, and other required patient management activities. This 30 minutes is in excess of all separately billable procedures. Departure Information Dispostion Being Evaluated By Hospitalist Condition FAIR Referrals Sylvia Watson (PCP) Patient Instructions My [facility] Problem Qualifiers Primary Impression: Pulmonary embolism Pulmonary embolism type: saddle Chronicity: acute Acute cor pulmonale presence: with acute cor pulmonale Qualified Codes: I26.02 - Saddle embolus of pulmonary artery with acute cor pulmonale
[2017-09-06] VITALS (7 sets, daily range): BP systolic 106–149; BP diastolic 65–82; PULSE 75–96; TEMP 36.5–36.8; O2SAT 92–96
--- NOTE | 2017-09-06 | NUR ---
A: Patient resting in bed. A&O x4. VSS on 3L N.C. Patient denies chest pain at this time. States he becomes SOB on exertion, accessory muscle use with breathing during exertion. Limited patient activity at this time. NSR on monitor. Heparin infusing at 48mL/hr, NSS infusing at 100mL/hr into LT hand. See EMR for full assessment. Will recheck PTT in AM at 0444, will adjust Heparin per protocol. Call fraser within reach. Will continue to monitor.
[2017-09-06 03:50] LABS: BASO % 0.5 %; BASO ABS # 0.03 K/uL (0-0.2); EOS % 3.4 %; HEMATOCRIT 43.3 % (42-52); HEMOGLOBIN 14.6 g/dL (14.0-18.0); IG# 0.02 K/uL (0.00-0.02); LYMPH % 36.3 %; LYMPH ABS # 2.11 K/uL (1.2-3.4); MEAN CELL VOLUME 86.9 fL (80-100); MEAN CORPUSCULAR HEMOGLOBIN 29.3 pg (25-34); MEAN CORPUSCULAR HGB CONC 33.7 g/dl (32-36); MEAN PLATELET VOLUME 9.6 fL (7.4-10.4); MONO % 11.3 %; MONO ABS # 0.66 K/uL (0.11-0.59); NEUT % 48.2 %; PLATELET COUNT 177 K/uL (130-400); RED CELL DISTRIBUTION WIDTH CV 13.9 % (11.5-14.5); RED CELL DISTRIBUTION WIDTH SD 43.7 fL (36.4-46.3); WHITE BLOOD COUNT 5.82 K/uL (4.8-10.8)
--- NOTE | 2017-09-06 04:00 | NUR ---
A: Patient resting in bed. HOB > 30 degrees. A&O x4. VSS on 3L N.C. NSR on monitor. Assessment unchanged from previous. Patient denies chest pain or shortness of breath at this time. Heparin drip no change per protocol, continue infusion at 48mL/hr. Call fraser within reach.
[2017-09-06 04:10] LABS: CALCIUM 8.5 mg/dl (8.5-10.1); CREATININE 1.3 mg/dl (0.60-1.40); POTASSIUM 3.6 mmol/L (3.5-5.1)
[2017-09-06 04:17] LABS: PTT PATIENT 48.9 SECONDS (21.0-31.0)
[2017-09-06 04:19] LABS: CKMB 3.2 ng/ml (0.5-3.6)
[2017-09-06] MEDS: HEPARIN 25,000 UNIT/500ML D5W 500 ML IV PRN ×2 (04:59→16:52)
[2017-09-06] MEDS: SODIUM CHLORIDE 0.9% 1000ML 1,000 ML IV SCH ×2 (05:00→15:48)
--- NOTE | 2017-09-06 07:18 | DIAGNOSTIC IMAGING REPORT ---
CHEST ONE VIEW PORTABLE CLINICAL HISTORY: Pulmonary Embolism COMPARISON STUDY: 09/05/2017 FINDINGS: The cardiac and mediastinal contours remain stable. There is mild interstitial thickening unchanged the prior study. There is no focal pulmonary consolidation. There are no pleural effusions.[ IMPRESSION: Mild cardiomegaly. Interstitial thickening likely chronic. No acute findings. Electronically signed by: Maurice Mayer M.D. 09/06/2017 7:17 AM Dictated Date/Time: 09/06/2017 7:15 AM
--- NOTE | 2017-09-06 08:00 | NUR ---
A: Assessment complete. Patient resting in bed. No issues at this time. Ate 100% of breakfast. Tolerated well. NSR on the monitor. Denies sob, chest pain. Heparin gtt 48cc/hr. Next PTT 09/07.
[2017-09-06] MEDS: INSULIN ASPART 100 UNITS/ML 3 ML PEN SC SCH ×4 (08:12→20:45)
[2017-09-06] MEDS: BUDESONIDE/FORMOTEROL FUMARATE 160/4.5 60 PUFFS/INHALER INH SCH ×2 (08:12→20:45)
[2017-09-06] MEDS: ATORVASTATIN 40 MG TAB PO SCH (08:13)
[2017-09-06] MEDS: ASPIRIN 81 MG ECTAB PO SCH (08:13)
[2017-09-06 09:51] LABS: CKMB 3.1 ng/ml (0.5-3.6)
--- NOTE | 2017-09-06 10:56 | Hospitalist Progress Note ---
Hospitalist Progress Note Date of Service Sep 06, 2017. (Jerri Mendez PA-C) Subjective Pt evaluation today including: conversation w/ patient, physical exam, chart review, lab review, review of studies, review of inpatient medication list Patient seen and evaluated. No acute events overnight. States he has been noticing SOB over the past couple days prior to his intense CP that brought him to the hospital. States he would still be able to walk about 100 yards but would then have to stop to catch his breath but stated he would make a full recovery at rest. Currently denying CP or SOB. Does have TORRES and states he gets this just walking to the bathroom. States he feels that his LE edema is improved and no leg pain. Has a lymphedema- like edema of lower extremities. He states when he had his previous PE in 2009 they were not able to find the location of the clot. He reports that he was initially recommended to be on life -long blood thinners but he didn't want to because of his job. Currently is retired and agreeing to life-long anticoagulation. He did not require O2 at home and likely will need some on D/C possibly acutely vs life long. He is stable and currently no findings suggesting the need to pursue TPA. Constitutional: No fever, No chills Respiratory: + cough (with deep breathing), + dyspnea on exertion, No sputum , No dyspnea at rest, No hemoptysis Cardiovascular: No chest pain, No palpitations Abdomen: No pain, No nausea, No vomiting, No diarrhea, No constipation Musculoskeletal: No swelling, No calf pain Male : No dysuria Heme: No abnormal bleeding/bruising (Jerri Mendez, KRISC) Medications Current Inpatient Medications Medications (Trade) Dose Ordered Sig/Junito Route Start Time Stop Time Status Last Admin Dose Admin Ioversol (Optiray 320) 125 ml UD PRN IV 09/05/17 06:30 09/09/17 06:29 Miscellaneous Information (Standard Warfarin Nomogram) 1 ea DAILY@14 PO 09/05/17 14:00 10/05/17 13:59 09/05/17 14:36 1 EA Acetaminophen (Tylenol Tab) 650 mg Q4H PRN PO 09/05/17 08:15 10/05/17 08:14 Ondansetron HCl (Zofran Inj) 4 mg Q6H PRN IV 09/05/17 08:15 10/05/17 08:14 Polyethylene (Miralax Powder Packet) 17 gm DAILY PRN PO 09/05/17 08:15 10/05/17 08:14 Insulin Aspart (novoLOG ASPART) SLIDING SCALE If C... ACHS SC 09/05/17 11:00 10/05/17 10:59 09/06/17 08:12 2 UNITS Glucose (Glucose 40% Gel) 15-30 GRAMS 15 GRAMS... UD PRN PO 09/05/17 08:15 10/05/17 08:14 Glucose (Glucose Chew Tab) 4-8 Tablets 4 Tabl... UD PRN PO 09/05/17 08:15 10/05/17 08:14 Dextrose (Dextrose 50% 50ML Syringe) 25-50ML OF 50% DW IV FOR... UD PRN IV 09/05/17 08:15 10/05/17 08:14 Glucagon (Glucagon Inj) 1 mg UD PRN SQ 09/05/17 08:15 10/05/17 08:14 Sodium Chloride 1,000 ml @ 100 mls/hr Q10H IV 09/05/17 09:30 10/05/17 09:29 09/06/17 05:00 100 MLS/HR Oxycodone/ Acetaminophen (Percocet 5-325mg Tab) @ Q4H PRN PO 09/05/17 08:30 09/19/17 08:29 09/05/17 12:43 1 TAB Budesonide/ Formoterol Fumarate (Symbicort 160/ 4.5 Inh) 2 puffs BID INH 09/05/17 09:00 10/05/17 08:59 09/06/17 08:12 2 PUFFS Albuterol/ Ipratropium (Combivent Respimat Inh) 1 puffs QID PRN INH 09/05/17 08:30 10/05/17 08:29 Heparin Sodium/ Dextrose 500 ml @ 48 mls/hr [id number] PRN IV 09/05/17 09:00 10/05/17 08:59 09/06/17 04:59 48 MLS/HR Aspirin (Ecotrin Tab) 81 mg QAM PO 09/06/17 09:00 10/06/17 08:59 09/06/17 08:13 81 MG Atorvastatin Calcium (Lipitor Tab) 40 mg QAM PO 09/06/17 09:00 10/06/17 08:59 09/06/17 08:13 40 MG (Jerri Mendez PA-C) Objective Vital Signs Date Time Temp Pulse Resp B/P (MAP) Pulse Ox O2 Delivery O2 Flow Rate FiO2 09/06/17 08:00 Nasal Cannula 2.0 09/06/17 07:05 36.5 75 20 123/68 (86) 92 Nasal Cannula 2.0 09/06/17 04:00 Nasal Cannula 3.0 09/06/17 02:50 36.7 75 20 106/67 (80) 96 Nasal Cannula 3.0 09/06/17 02:41 112/78 (89) 09/06/17 00:00 Nasal Cannula 3.0 09/05/17 23:40 36.6 76 18 177/99 (125) 97 Room Air 09/05/17 23:15 36.7 84 20 103/68 (80) 94 Nasal Cannula 3.0 09/05/17 20:00 Nasal Cannula 3.0 09/05/17 19:12 36.9 89 18 106/70 (82) 92 Room Air 09/05/17 16:00 Nasal Cannula 3.0 09/05/17 15:30 36.7 93 18 109/69 (82) 97 Nasal Cannula 2.0 09/05/17 12:00 Nasal Cannula 3.0 09/05/17 11:30 36.3 102 20 134/80 (98) 90 3.0 (Jerri Mendez PA-C) Physical Exam General Appearance: no apparent distress, + obese Eyes: sclerae normal ENT: hearing grossly normal Neck: supple, no JVD, trachea midline Respiratory/Chest: no respiratory distress, no accessory muscle use, + decreased breath sounds (bases b/l) Cardiovascular: regular rate, rhythm Abdomen: normal bowel sounds, non tender, soft Extremities: + pertinent finding (trace pitting edema in L ankle) Neurologic/Psychiatric: alert, oriented x 3 Skin: normal color, warm/dry (Jerri Mendez PA-C) Laboratory Results Last 24 Hours Test 09/05/17 11:45 09/05/17 13:38 09/05/17 15:10 09/05/17 16:31 Bedside Glucose 173 mg/dl 139 mg/dl Activated Partial Thromboplast Time 51.1 SECONDS Partial Thromboplastin Ratio 2.0 Total Creatine Kinase 133 U/L Creatine Kinase MB 3.4 ng/ml Creatine Kinase MB Ratio 2.6 Troponin I 1.170 ng/ml Test 09/05/17 20:30 09/05/17 21:07 09/06/17 03:39 09/06/17 06:57 Bedside Glucose 142 mg/dl 140 mg/dl Total Creatine Kinase 133 U/L 163 U/L Creatine Kinase MB 2.7 ng/ml 3.2 ng/ml Creatine Kinase MB Ratio 2.0 2.0 Troponin I 0.788 ng/ml 0.440 ng/ml White Blood Count 5.82 K/uL Red Blood Count 4.98 M/uL Hemoglobin 14.6 g/dL Hematocrit 43.3 % Mean Corpuscular Volume 86.9 fL Mean Corpuscular Hemoglobin 29.3 pg Mean Corpuscular Hemoglobin Concent 33.7 g/dl Platelet Count 177 K/uL Mean Platelet Volume 9.6 fL Neutrophils (%) (Auto) 48.2 % Lymphocytes (%) (Auto) 36.3 % Monocytes (%) (Auto) 11.3 % Eosinophils (%) (Auto) 3.4 % Basophils (%) (Auto) 0.5 % Neutrophils # (Auto) 2.80 K/uL Lymphocytes # (Auto) 2.11 K/uL Monocytes # (Auto) 0.66 K/uL Eosinophils # (Auto) 0.20 K/uL Basophils # (Auto) 0.03 K/uL RDW Standard Deviation 43.7 fL RDW Coefficient of Variation 13.9 % Immature Granulocyte % (Auto) 0.3 % Immature Granulocyte # (Auto) 0.02 K/uL Prothrombin Time 10.9 SECONDS Prothromb Time International Ratio 1.0 Activated Partial Thromboplast Time 48.9 SECONDS Partial Thromboplastin Ratio 1.9 Sodium Level 135 mmol/L Potassium Level 3.6 mmol/L Chloride Level 102 mmol/L Carbon Dioxide Level 30 mmol/L Anion Gap 3.0 mmol/L Blood Urea Nitrogen 15 mg/dl Creatinine 1.30 mg/dl Est Creatinine Clear Calc Drug Dose 123.3 ml/min Estimated GFR () 72.2 Estimated GFR (Non- 62.3 BUN/Creatinine Ratio 11.4 Random Glucose 155 mg/dl Calcium Level 8.5 mg/dl Magnesium Level 2.3 mg/dl Triglycerides Level 147 mg/dl Cholesterol Level 163 mg/dl HDL Cholesterol 27 mg/dl LDL Cholesterol, Calculated 107 mg/dl VLDL Cholesterol, Calculated 29 mg/dl Cholesterol/HDL Ratio 6.0 Test 09/06/17 08:57 Total Creatine Kinase 182 U/L Creatine Kinase MB 3.1 ng/ml Creatine Kinase MB Ratio 1.7 Troponin I 0.334 ng/ml (Jerri Mendez, PA-C) Assessment and Plan Mr. Fuentes is a 52 y/o with PMHx of morbid obesity, Unprovoked PE (2009) treated with Coumadin x 3 months, Unspecified Chronic Lung Diease "collapsed lungs at bases", HLD, OA, Diet Controlled T2DM who was found to have B/L PE and Saddle Embolus with associated mod-severe R heart strain Acute Possibly on Chronic Hypoxic Respiratory Failure 2/2 B/L PE and Saddle Embolus - Superimposed on Unspecified Chronic Lung Disease: Possible CTED - PESI score calculated at 113 - high risk for mortality at 30 days of 4-11% - Given history appears to be tolerated clot burden - patient opted for heparin/ Coumadin instead of transfer to tertiary care or TPA - denies bleeding history - Continue heparin gtt and Coumadin bridge - monitor INR - Echo - EF 60-65%; flattened septum with severely dilated RV with akinesis - Maintian supplemental O2 - will likely need two-step on D/C - Continue IVF at this time - appears euvolemic but this is difficult to completely assess due to body habitus - No signs of acute decompensation at this time - consideration for half dose TPA and model maker fiberglass consultation if this occurs - Pulmonology following - appreciate recommendations Elevated Troponins: Trending Down - Likely in setting of R heart strain and massive clot burden - ASA 81 mg daily - Consideration for cardiology consultation if worsens - will hold off at this time T2DM - Diet Controlled - A1c pending - Continue SSI HLD: - Statin 40 mg daily Chronic Lung Disease - HAN vs Hypoventilation Syndrome - Symbicort 2 puffs BID and Combivent 1 puff QID PRN DVT Prophylaxis: Heparin/Coumadin Code Status: FULL RESUSCITATION Disposition: - Trend INR and monitor - hopeful D/C next 2-3 days and will need two-step prior to D/C - Outpatient cardiopulmonary rehab Continued [facility] stay due to: multiple IV medications needed Discharge planning: home (Jerri Mendez PA-C) Reviewed: Pt Seen/Exam by Me (Radha Odell, ) History Pt is feeling much improved. Still with SOB on exertion only, but better than GO GO DANCER. No chest pain at all and feels fine at rest. Tolerating PO without issue. Agree with HPI/ROS as noted. (Radha Odell, ) General Appearance: no apparent distress, obese Eye Exam: bilateral eye normal inspection, bilateral eye EOMI Respiratory: normal breath sounds, no respiratory distress Cardiovascular: normal peripheral pulses, regular rate, rhythm Gastrointestinal: non tender, soft Extremities: non-tender, no pedal edema Neurologic/Psychiatric: alert, normal mood/affect, oriented x 3 Skin Characteristics: normal color, warm/dry (Radha Odell DO) Assessment/Plan Agree with plan as outlined above Extensive b/l PE with saddle embolus Started on heparin and will bridge to coumadin LE/UE US neg for DVT Pt with hx of R sided PE and also neg for DVT at that time Anticoag panel pending Called by cardiology for abn EKG with T wave inversions now noted--can be related to severe RV strain Pt is feeling overall improved with VSS and trop max of 1.17 with most recent trop of 0.33 at 9am making [place] less likely Continue to monitor Repeat EKG in AM New O2 requirement, wean as able May need 2 step prior to d/c if ongoing needs (Radha Odell, DO)
--- NOTE | 2017-09-06 13:41 | NUR ---
A: Assessment completed. NSR on the monitor. No change in condition. Ate 100% of lunch. Tolerated well. Complains of sob with exertion during ambulation to the bathroom. Educated to ekta for assistance.
[2017-09-06] MEDS: STANDARD WARFARIN NOMOGRAM PO SCH (14:00)
--- NOTE | 2017-09-06 14:53 | NUR ---
case management note. social service consult for D/C planning. met with pt at bedside. pt is A&O and states he lives with his nephew and his nephews girlfriend in a trailer with [address] and is independent with all activities at baseline. he does not have any oxygen or HH services. he states he has CPAP at home but does not wear it. he states he got his supplies for this from [employer], through the [place]. Role of manager case explained. pt states he is planning to return home at D/C and denies the need for any HH services. he is currently requiring 2 L NC. he states he might need O2 at D/C. pt will need weaned off O2 or have 2 step completed prior to D/C to determine O2 needs. If [facility] is required [facility] case management to follow.
[2017-09-06] MEDS ORDERED: WARFARIN SOD 7.5 MG TAB PO SCH (16:00)
--- NOTE | 2017-09-06 16:00 | NUR ---
A: Resting quietly in room. Monitor shows sinus rhythm. Lungs sound diminished. States TORRES. IV Heparin infusing at 2400 units/hr. Coumadin given. Coumadin booklet given to patient. Denies chest pain.
--- NOTE | 2017-09-06 20:00 | NUR ---
A/ID note: Resting quietly in bed. Monitor shows sinus rhythm. Heparin gtt continues at 2400 units/hr. Was given 7.5mg Coumadin today. TORRES. guest services coordinator involved in discharge planning. To go home when INR therapeutic.
[2017-09-07] VITALS (8 sets, daily range): BP systolic 100–137; BP diastolic 54–78; PULSE 71–77; TEMP 36.2–36.8; O2SAT 92–97
--- NOTE | 2017-09-07 | NUR ---
A: Pt alert and oriented x4. Assessment completed, no complaints at this time. Heparin infusing at 48ml/hr and NS at 100ml/hr. Ind in room. Rings appropriately for assistance. NSR noted on the monitor, no acute tele events noted. VSS on 2L O2, Oxygen is not chronic use for pt. Goal set to titrate off oxygen as tolerated. Call fraser left within reach of pt. Will continue to monitor.
[2017-09-07] MEDS: SODIUM CHLORIDE 0.9% 1000ML 1,000 ML IV SCH ×3 (01:48→22:22)
--- NOTE | 2017-09-07 04:00 | NUR ---
A: Pt remains alert and oriented x4. Assessment unchanged. NSR noted on the monitor, no acute changes. IVF continue to infuse as ordered. Heparin infusing at 48ml/hr. VSS on 2L O2. Repeat EKG today? Ind in room. D/C planning in progress.
[2017-09-07 06:40] LABS: HEMATOCRIT 41.6 % (42-52); HEMOGLOBIN 13.9 g/dL (14.0-18.0); MEAN CELL VOLUME 86.3 fL (80-100); MEAN CORPUSCULAR HEMOGLOBIN 28.8 pg (25-34); MEAN CORPUSCULAR HGB CONC 33.4 g/dl (32-36); MEAN PLATELET VOLUME 9.1 fL (7.4-10.4); PLATELET COUNT 167 K/uL (130-400); RED CELL DISTRIBUTION WIDTH CV 13.7 % (11.5-14.5); RED CELL DISTRIBUTION WIDTH SD 43.4 fL (36.4-46.3); WHITE BLOOD COUNT 4.83 K/uL (4.8-10.8)
[2017-09-07 06:57] LABS: INR 1.1 (0.9-1.1)
[2017-09-07 07:04] LABS: PTT PATIENT 51.1 SECONDS (21.0-31.0)
--- NOTE | 2017-09-07 07:10 | DIAGNOSTIC IMAGING REPORT ---
CHEST ONE VIEW PORTABLE CLINICAL HISTORY: 52 years-old Male presenting with Pulmonary Embolism. TECHNIQUE: Portable upright AP view of the chest was obtained. COMPARISON: 09/06/2017. FINDINGS: Atherosclerosis of aortic arch. Cardiac silhouette enlarged. Prominent vasculature in the left upper lobe with relative radiolucency of the left upper lobe parenchyma. Mildly prominent lung markings. No focal opacity. No large effusion or pneumothorax. Osseous structures normal. Upper abdomen normal. IMPRESSION: 1. Asymmetric vascular prominence and prominent lung markings could relate to recent extensive bilateral pulmonary emboli. No focal infiltrate suggests radiographic evidence of pulmonary infarct. 2. Cardiomegaly. Electronically signed by: Matthias Cruz M.D. 09/07/2017 7:08 AM Dictated Date/Time: 09/07/2017 7:06 AM
[2017-09-07 07:44] LABS: HEMOGLOBIN A1C 7.7 % (4.5-5.6)
--- NOTE | 2017-09-07 08:00 | NUR ---
A: Pt a/o x 4, VSS on 2L NC. SR with 1 degree AV block. Denies pain, N/V/D, c/o of TORRES. IVF/heparin gtt infusing. Tolerating diet well. Ambulates independently in room with supervision, gait steady. See EMR for full assessment. Denies further needs at this time. Call fraser and bedside table in reach, bed in lowest position. Continue to monitor.
[2017-09-07] MEDS: BUDESONIDE/FORMOTEROL FUMARATE 160/4.5 60 PUFFS/INHALER INH SCH ×2 (08:10→20:45)
[2017-09-07] MEDS: ASPIRIN 81 MG ECTAB PO SCH (08:11)
[2017-09-07] MEDS: ATORVASTATIN 40 MG TAB PO SCH (08:11)
[2017-09-07] MEDS: INSULIN ASPART 100 UNITS/ML 3 ML PEN SC SCH ×4 (08:17→20:45)
--- NOTE | 2017-09-07 09:57 | Progress Note ---
Subjective Date of Service: Sep 07, 2017. Subjective Pt evaluation today including: conversation w/ patient Pt is still SOB with any exertion, but feels this is improving. No SOB at rest and has not had chest pain since starting tx. Tolerating PO without issue. Pt denies fever, abd pain, n/v/c/d, LE pain or swelling. Problem List Medical Problems: (1) Elevated troponin Status: Acute Review of Systems All Other Systems: Reviewed and Negative Objective Vital Signs Date Time Temp Pulse Resp B/P (MAP) Pulse Ox O2 Delivery O2 Flow Rate FiO2 09/07/17 07:15 36.5 73 18 137/78 (97) 94 2.0 09/07/17 04:08 36.8 72 18 115/74 (88) 92 2.0 09/07/17 04:00 95 Nasal Cannula 2.0 09/07/17 00:00 95 Nasal Cannula 2.0 09/06/17 23:11 36.7 79 20 121/82 (95) 95 2.0 09/06/17 20:00 Nasal Cannula 2.0 09/06/17 19:21 36.6 96 20 149/79 (102) 92 2.0 09/06/17 16:00 Nasal Cannula 2.0 09/06/17 15:41 36.5 79 18 113/65 (81) 93 Nasal Cannula 2.0 09/06/17 12:00 Nasal Cannula 2.0 09/06/17 11:40 36.8 95 22 115/74 (88) 93 Nasal Cannula 2.0 Physical Exam General Appearance: no apparent distress, + obese Eyes: normal inspection, EOMI, sclerae normal Respiratory/Chest: lungs clear, normal breath sounds, + respiratory distress ( pt had just ambulated from the bathroom to his chair and was mildly SOB) Cardiovascular: regular rate, rhythm, no edema Abdomen: non tender, soft Extremities: non-tender, no pedal edema Neurologic/Psychiatric: alert, normal mood/affect, oriented x 3 Skin: normal color, warm/dry Laboratory Results Last 24 Hours Test 09/06/17 11:18 09/06/17 16:35 09/06/17 20:06 09/07/17 06:09 Bedside Glucose 118 mg/dl 109 mg/dl 110 mg/dl White Blood Count 4.83 K/uL Red Blood Count 4.82 M/uL Hemoglobin 13.9 g/dL Hematocrit 41.6 % Mean Corpuscular Volume 86.3 fL Mean Corpuscular Hemoglobin 28.8 pg Mean Corpuscular Hemoglobin Concent 33.4 g/dl RDW Standard Deviation 43.4 fL RDW Coefficient of Variation 13.7 % Platelet Count 167 K/uL Mean Platelet Volume 9.1 fL Prothrombin Time 11.6 SECONDS Prothromb Time International Ratio 1.1 Activated Partial Thromboplast Time 51.1 SECONDS Partial Thromboplastin Ratio 2.0 Test 09/07/17 07:26 Bedside Glucose 123 mg/dl Assessment and Plan 52 y/o M with PMHx of morbid obesity, Unprovoked PE (2009) treated with Coumadin x 3 months, Unspecified Chronic Lung Diease "collapsed lungs at bases" , HLD, OA, Diet Controlled T2DM who was found to have B/L PE and Saddle Embolus with associated mod-severe R heart strain Acute Possibly on Chronic Hypoxic Respiratory Failure 2/2 B/L PE and Saddle Embolus - Superimposed on Unspecified Chronic Lung Disease: Possible CTED - PESI score calculated at 113 - high risk for mortality at 30 days of 4-11% - patient opted for heparin/Coumadin instead of transfer to tertiary care or TPA - denies bleeding history - Continue heparin gtt and Coumadin bridge - monitor INR - Echo - EF 60-65%; flattened septum with severely dilated RV with akinesis - Maintain supplemental O2 - will likely need two-step on D/C - Continue IVF at this time - appears euvolemic but this is difficult to completely assess due to body habitus - No signs of acute decompensation at this time - consideration for half dose TPA and aml analyst consultation if this occurs Anticoag panel pending Elevated Troponins: Trending Down - Likely in setting of R heart strain and massive clot burden - ASA 81 mg daily Abn EKG in the setting of severe R heart strain Pt is feeling overall improved with VSS and trop max of 1.17 with most recent trop of 0.33 at 9am making VT less likely Repeat EKG this AM is improving but still noted, will continue to monitor given clinical improvements and VSS ECHO as above T2DM - Diet Controlled - A1c elevated at 7.7 - Continue SSI HLD: - Statin 40 mg daily Chronic Lung Disease - HAN vs Hypoventilation Syndrome - Symbicort 2 puffs BID and Combivent 1 puff QID PRN DVT Prophylaxis: Heparin/Coumadin Code Status: FULL RESUSCITATION Disposition: - Trend INR and monitor - hopeful D/C next 2-3 days and will need two-step prior to D/C - Outpatient cardiopulmonary rehab Continued [facility] stay due to: multiple IV medications needed Discharge planning: home
--- NOTE | 2017-09-07 12:00 | NUR ---
A: Assessment unchanged. Remains in sinus rhythm with 1st degree AV block. Denies further needs at this time. See EMR for full assessment. Call fraser and bedside table in reach, bed in lowest position. Continue to monitor.
[2017-09-07] MEDS: HEPARIN 25,000 UNIT/500ML D5W 500 ML IV PRN (12:58)
[2017-09-07] MEDS: STANDARD WARFARIN NOMOGRAM PO SCH (14:28)
[2017-09-07] MEDS ORDERED: WARFARIN SOD 10 MG TAB PO SCH (16:00)
--- NOTE | 2017-09-07 16:00 | NUR ---
A Note:Patient alert and oriented X 4, Denies Chest pain thus far, Vss. Heparin Gtt Infusing @ 48 ML/HR/2400 Units per protocol. BSG 93, No Diabetic Imbalance noted. See EMR for full assessment. radiation monitor applied on, NSR, Heart rate Mid 60's noted. Will continue to monitor and update MD as needed. Call fraser within reach.
--- NOTE | 2017-09-07 20:00 | NUR ---
A Note: Systems unchanged thus far, Vss. Denies Chest pain/discomfort thus far. See EMR for full assessment. monitoring engineer applied on, NSR, Heart rate Low 70's noted. Will continue to monitor and update MD as needed. Call fraser within reach.
[2017-09-08] VITALS (7 sets, daily range): BP systolic 122–152; BP diastolic 76–85; PULSE 64–85; TEMP 36.5–36.8; O2SAT 94–97
--- NOTE | 2017-09-08 | NUR ---
A: Received care of pt. at 2245. Pt. A+Ox4. Denies pain or SOB at rest. VSS on 2 L NC. SR with 1st AVB on gl accountant. For full assessment, see EMR. Heparin gtt infusing at 48 ml/hr per protocol, NSS infusing at 100 ml/hr per orders. PTT to be rechecked in AM. Call fraser within reach. Will continue to monitor.
[2017-09-08] MEDS: HEPARIN 25,000 UNIT/500ML D5W 500 ML IV PRN ×3 (00:32→21:31)
--- NOTE | 2017-09-08 04:00 | NUR ---
A: Assessment unchanged, see EMR. Tolerating 2 L NC, dyspneic on exertion, respirations unlabored at rest. 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 Heparin gtt infusing at 48 ml/hr and NSS at 100 ml/hr. PTT to be rechecked in AM. Call fraser within reach.
[2017-09-08 05:18] LABS: INR 1.8 (0.9-1.1)
[2017-09-08 05:28] LABS: PTT PATIENT 63.9 SECONDS (21.0-31.0)
[2017-09-08] MEDS: SODIUM CHLORIDE 0.9% 1000ML 1,000 ML IV SCH ×2 (08:35→17:39)
[2017-09-08] MEDS: ASPIRIN 81 MG ECTAB PO SCH (08:37)
[2017-09-08] MEDS: ATORVASTATIN 40 MG TAB PO SCH (08:37)
[2017-09-08] MEDS: BUDESONIDE/FORMOTEROL FUMARATE 160/4.5 60 PUFFS/INHALER INH SCH ×2 (08:37→20:31)
[2017-09-08] MEDS: INSULIN ASPART 100 UNITS/ML 3 ML PEN SC SCH ×4 (08:41→20:31)
--- NOTE | 2017-09-08 11:39 | NUR ---
Case Management- Met with paktient in room. Patient reports he would like to return home on discharge he is aware he may have to return home on o2. Patient will need a two step before discharge. [facility] but would call to confirm closer to discharge once test is available. CM following
--- NOTE | 2017-09-08 12:00 | NUR ---
A: Assessment unchanged. Remains in NSR. Denies further needs at this time. Call fraser and bedside table in reach, bed in lowest position. Continue to monitor.
[2017-09-08] MEDS: STANDARD WARFARIN NOMOGRAM PO SCH (13:38)
--- NOTE | 2017-09-08 14:27 | Hospitalist Progress Note ---
Hospitalist Progress Note Date of Service Sep 08, 2017. (Jerri Mendez, KRISC) Subjective Pt evaluation today including: conversation w/ patient, physical exam, chart review, lab review, review of studies, review of inpatient medication list Patient seen and evaluated. No acute events overnight. He remained stable in NSR at 60-80 bpm. He is reporting that his TORRES is improving. He states he was able to do morning hygiene with less shortness of breath compared to yesterday. But is reporting more TORRES then baseline. He is still requiring supplemental oxygen. We'll continue to wean as tolerated today. Given his history and likely obesity hypoventilation syndrome it is possible that he normally has lower saturations. Currently INR is 1.8. No signs or symptoms of acute bleeding. He will likely need a 2 step prior to discharge. Constitutional: No fever, No chills Respiratory: + dyspnea on exertion, No dyspnea at rest, No hemoptysis Cardiovascular: No chest pain, No palpitations Abdomen: No pain, No nausea, No vomiting Musculoskeletal: No calf pain Male : No dysuria Heme: No abnormal bleeding/bruising (Jerri Mendez, KRISC) Medications Current Inpatient Medications Medications (Trade) Dose Ordered Sig/Junito Route Start Time Stop Time Status Last Admin Dose Admin Ioversol (Optiray 320) 125 ml UD PRN IV 09/05/17 06:30 09/09/17 06:29 Miscellaneous Information (Standard Warfarin Nomogram) 1 ea DAILY@14 PO 09/05/17 14:00 10/05/17 13:59 09/08/17 13:38 1 EA Acetaminophen (Tylenol Tab) 650 mg Q4H PRN PO 09/05/17 08:15 10/05/17 08:14 Ondansetron HCl (Zofran Inj) 4 mg Q6H PRN IV 09/05/17 08:15 10/05/17 08:14 Polyethylene (Miralax Powder Packet) 17 gm DAILY PRN PO 09/05/17 08:15 10/05/17 08:14 Insulin Aspart (novoLOG ASPART) SLIDING SCALE If C... ACHS SC 09/05/17 11:00 10/05/17 10:59 09/08/17 12:17 2 UNITS Glucose (Glucose 40% Gel) 15-30 GRAMS 15 GRAMS... UD PRN PO 09/05/17 08:15 10/05/17 08:14 Glucose (Glucose Chew Tab) 4-8 Tablets 4 Tabl... UD PRN PO 09/05/17 08:15 10/05/17 08:14 Dextrose (Dextrose 50% 50ML Syringe) 25-50ML OF 50% DW IV FOR... UD PRN IV 09/05/17 08:15 10/05/17 08:14 Glucagon (Glucagon Inj) 1 mg UD PRN SQ 09/05/17 08:15 10/05/17 08:14 Sodium Chloride 1,000 ml @ 100 mls/hr Q10H IV 09/05/17 09:30 10/05/17 09:29 09/08/17 08:35 100 MLS/HR Oxycodone/ Acetaminophen (Percocet 5-325mg Tab) @ Q4H PRN PO 09/05/17 08:30 09/19/17 08:29 09/05/17 12:43 1 TAB Budesonide/ Formoterol Fumarate (Symbicort 160/ 4.5 Inh) 2 puffs BID INH 09/05/17 09:00 10/05/17 08:59 09/08/17 08:37 2 PUFFS Albuterol/ Ipratropium (Combivent Respimat Inh) 1 puffs QID PRN INH 09/05/17 08:30 10/05/17 08:29 Heparin Sodium/ Dextrose 500 ml @ 48 mls/hr [id number] PRN IV 09/05/17 09:00 10/05/17 08:59 09/08/17 10:40 48 MLS/HR Aspirin (Ecotrin Tab) 81 mg QAM PO 09/06/17 09:00 10/06/17 08:59 09/08/17 08:37 81 MG Atorvastatin Calcium (Lipitor Tab) 40 mg QAM PO 09/06/17 09:00 10/06/17 08:59 09/08/17 08:37 40 MG Warfarin Sodium (Coumadin Tab) 7.5 mg DAILY@16 PO 09/08/17 16:00 09/08/17 16:01 (Jerri Mendez, KALYANI) Objective Vital Signs Date Time Temp Pulse Resp B/P (MAP) Pulse Ox O2 Delivery O2 Flow Rate FiO2 09/08/17 12:00 Nasal Cannula 2.0 09/08/17 11:20 36.8 64 16 122/76 (91) 97 Nasal Cannula 2.0 09/08/17 08:00 Nasal Cannula 2.0 09/08/17 07:16 36.5 74 20 133/81 (98) 96 Nasal Cannula 2.0 09/08/17 04:01 36.5 71 20 146/81 (102) 97 2.0 09/08/17 04:00 Nasal Cannula 2.0 09/08/17 00:00 Nasal Cannula 2.0 09/07/17 23:48 36.2 71 17 127/76 (93) 97 Nasal Cannula 2.0 09/07/17 20:01 36.6 77 18 124/78 (93) 95 Nasal Cannula 2.0 09/07/17 20:00 Nasal Cannula 2.0 09/07/17 16:00 Nasal Cannula 2.0 09/07/17 15:55 36.7 75 18 100/54 (69) 96 Nasal Cannula 2.0 (Jerri Mendez, PA-C) Physical Exam General Appearance: WD/WN, no apparent distress, + obese ENT: hearing grossly normal Neck: supple, no JVD, trachea midline Respiratory/Chest: lungs clear, no respiratory distress, no accessory muscle use, + decreased breath sounds (bases b/l) Cardiovascular: regular rate, rhythm Abdomen: normal bowel sounds, non tender, soft Neurologic/Psychiatric: alert, oriented x 3 Skin: normal color (Jerri Mendez, PA-C) Laboratory Results Last 24 Hours Test 09/07/17 16:29 09/07/17 20:16 09/08/17 04:49 09/08/17 07:27 Bedside Glucose 93 mg/dl 106 mg/dl 132 mg/dl Prothrombin Time 18.7 SECONDS Prothromb Time International Ratio 1.8 Activated Partial Thromboplast Time 63.9 SECONDS Partial Thromboplastin Ratio 2.5 Test 09/08/17 11:33 Bedside Glucose 91 mg/dl (Jerri Mendez, PA-C) Assessment and Plan Mr. Fuentes is a 52 y/o with PMHx of morbid obesity, Unprovoked PE (2009) treated with Coumadin x 3 months, Unspecified Chronic Lung Diease "collapsed lungs at bases", HLD, OA, Diet Controlled T2DM who was found to have B/L PE and Saddle Embolus with associated mod-severe R heart strain Acute Possibly on Chronic Hypoxic Respiratory Failure 2/2 B/L PE and Saddle Embolus - Superimposed on Unspecified Chronic Lung Disease: Possible CTED - PESI score calculated at 113 - high risk for mortality at 30 days of 4-11% - Patient opted for heparin/Coumadin instead of transfer to tertiary care or TPA - No signs of acute decompensation at this time - consideration for half dose TPA and planishing hammer operator consultation if this occurs - Continue heparin gtt and Coumadin bridge - monitor INR - currently at 1.8 - Echo - EF 60-65%; flattened septum with severely dilated RV with akinesis - Maintain supplemental O2 as needed - recommend weaning - will likely still need two-step prior to D/C - Pulmonology following - appreciate recommendations Elevated Troponins: Trending Down - Likely in setting of R heart strain and massive clot burden - ASA 81 mg daily - Did have more significant T wave inversions likely from heart strain but appears to be improving on subsequent EKGs - continues to denies CP - Consideration for cardiology consultation if worsens - will hold off at this time T2DM - Diet Controlled: - Continue SSI HLD: - Statin 40 mg daily Chronic Lung Disease - HAN vs Hypoventilation Syndrome - Symbicort 2 puffs BID and Combivent 1 puff QID PRN DVT Prophylaxis: Heparin/Coumadin Code Status: FULL RESUSCITATION Disposition: - Possible D/C tomorrow pending clinical response and likely two-step prior to D /C - Outpatient cardiopulmonary rehab Continued [facility] stay due to: multiple IV medications needed Discharge planning: home (Jerri Mendez, PA-C) Reviewed: Pt Seen/Exam by Me (Radha Odell DO) History Pt continues to improve. His O2 was taken off this afternoon and he has had no SOB at rest, however he has not ambulated without it yet. No recurrence of chest pain. Tolerating PO without issue. Agree with HPI/ROS as noted by PAC (Radha Odell DO) General Appearance: no apparent distress, obese Respiratory: normal breath sounds, no respiratory distress Cardiovascular: normal peripheral pulses, regular rate, rhythm Gastrointestinal: non tender, soft Extremities: non-tender, no pedal edema Neurologic/Psychiatric: alert, normal mood/affect, oriented x 3 Skin Characteristics: normal color, warm/dry (Radha Odell, ) Assessment/Plan Agree with plan as outlined above Extensive b/l PE with saddle embolus Started on heparin and will bridge to coumadin, INR 1.8 LE/UE US neg for DVT Pt with hx of R sided PE and also neg for DVT at that time Anticoag panel pending Called by cardiology on 09/06 for abn EKG with T wave inversions now noted--can be related to severe RV strain Pt is feeling overall improved with VSS and trop max of 1.17 with most recent trop of 0.33 at 9am making [place] less likely Continue to monitor, serial EKGs show improvement New O2 requirement, wean as able and tolerating no O2 at rest May need 2 step prior to d/c if ongoing needs (Radha Odell, DO)
[2017-09-08] MEDS ORDERED: WARFARIN SOD 7.5 MG TAB PO SCH (16:00)
--- NOTE | 2017-09-08 16:00 | NUR ---
A: A+O x 4. VSS. SR on monitor, denies chest pain. Lung sounds clear, diminished in bases, TORRES that is slowly improving. Independent OOB. Tolerating diet well, BSGs ACHS. NSS infusing at 100ml/hr w/ hep gtt infusing at 48ml/hr into L hand site, WNL. Sitting comfortably in bedside chair. Call fraser w/in reach. Denies pain. Will continue to monitor.
--- NOTE | 2017-09-08 20:00 | NUR ---
A/ID: Pt admitted for bilateral pulmonary emboli. A+O x 4. VSS. SR on monitor, denies chest pain. Lung sounds clear, diminished in bases, TORRES that is slowly improving, O2 sats stable on RA. Independent OOB. Tolerating diet well, BSGs ACHS. NSS infusing at 100ml/hr w/ hep gtt infusing at 48ml/hr into L hand site, WNL. Denies pain. Discharge home when medically stable.
--- NOTE | 2017-09-09 | NUR ---
A: Patient is resting well. no complaints of pain or signs of distress. Independent in room. Remains on the cardiac cath lab technologist- no acute changes. Heparin gtt infusing at 48 cc/hour/ NSS infusing at 100 cc/hour. Will continue to monitor and assess patient.
[2017-09-09 00:37] VITALS: BP 168/92; PULSE 80; TEMP 36.5; O2SAT 93
--- NOTE | 2017-09-09 04:00 | NUR ---
A: Patient is resting well. No complaints of pain or signs of distress. Remains on the monitoring engineer- remains on the heparin gtt. Will continue to monitor and assess patient.
[2017-09-09 04:38] VITALS: BP 157/66; PULSE 72; TEMP 36.8; O2SAT 91
[2017-09-09] MEDS: SODIUM CHLORIDE 0.9% 1000ML 1,000 ML IV SCH (04:45)
[2017-09-09 06:12] LABS: HEMATOCRIT 41.4 % (42-52); HEMOGLOBIN 13.9 g/dL (14.0-18.0); MEAN CELL VOLUME 86.4 fL (80-100); MEAN CORPUSCULAR HGB CONC 33.6 g/dl (32-36); MEAN PLATELET VOLUME 9.3 fL (7.4-10.4); PLATELET COUNT 166 K/uL (130-400); RED CELL DISTRIBUTION WIDTH CV 13.7 % (11.5-14.5); RED CELL DISTRIBUTION WIDTH SD 43.5 fL (36.4-46.3)
[2017-09-09 06:29] LABS: INR 3.4 (0.9-1.1)
[2017-09-09 06:35] LABS: PTT PATIENT 89.1 SECONDS (21.0-31.0)
[2017-09-09 06:45] LABS: CALCIUM 8.7 mg/dl (8.5-10.1); CREATININE 1.1 mg/dl (0.60-1.40); POTASSIUM 3.8 mmol/L (3.5-5.1)
[2017-09-09 07:50] VITALS: BP 134/76; PULSE 74; TEMP 36.9; O2SAT 93
--- NOTE | 2017-09-09 08:00 | NUR ---
A: Upon initial assessment of patient, alert and oriented x4. Denies pain thus far. OOB independently. IV heparin and fluids infusing per order/protocol. Tolerating diet well. VSS on room air. monitoring engineer in place. Will continue to monitor.
[2017-09-09] MEDS: BUDESONIDE/FORMOTEROL FUMARATE 160/4.5 60 PUFFS/INHALER INH SCH ×2 (08:28→20:46)
[2017-09-09] MEDS: ASPIRIN 81 MG ECTAB PO SCH (08:28)
[2017-09-09] MEDS: ATORVASTATIN 40 MG TAB PO SCH (08:28)
[2017-09-09] MEDS: INSULIN ASPART 100 UNITS/ML 3 ML PEN SC SCH ×4 (08:30→20:45)
--- NOTE | 2017-09-09 08:45 | NUR ---
A: Heparin gtt stopped per order
[2017-09-09 11:41] VITALS: BP 135/73; PULSE 70; TEMP 36.7; O2SAT 93
--- NOTE | 2017-09-09 12:00 | NUR ---
A: Unchanged assessment from previous note. VSS on room air. OOB independently. IVF infusing per md order. VSS on room air. office administrator in place. Will continue to monitor.
--- NOTE | 2017-09-09 12:06 | NUR ---
Discharge planning. I spoke with patient regarding discharge options for follow up bloodwork. He is requesting home health services for this. I called [facility], [phone] and spoke with Genna who states that this information will be sent to his primary care physician and social work instructor Cee Edgar and this arrangements will be made. She was unable to tell me when first appt would be or with what agency, she will submit for services as per their protocol. She had no direct phone number for Cee however states that she was not in today. Genna is aware of probable discharge tomorrow. I will call tomorrow prior to discharge for additional information.
--- NOTE | 2017-09-09 12:34 | NUR ---
shaft repairer [facility]: I contact Nannette, our optical effects line up person at the [facility], and leave a message asking her to return my call so we can coordinate services that pt will need upon dc - coag clinic and home care thru the [facility]. [facility] [place] and I am told that the pt is active w/ their [facility]. I am instructed to fax pt information to the [facility] in [place] ([phone]) to the attn of Sylvia WHITTAKER. I faxed demographic info, imaging reports (CXR and CT scan), H&P, and physician progress notes. I also request that they call me norberto so we can coordinate services that pt will need upon dc e.g., coag clinic, close PCP follow up, cardiology, and home care thru the [facility]. Addendum: 09/09/17 at 1518 by Soheila Chandler SERV I called the [facility] and the plastics engineering teacher tells me that they received the pt's info and aware of the situation. The doctor should be reviewing the info and return my phone call soon - end of the day today or tomorrow morning.
[2017-09-09 13:25] LABS: PTT PATIENT 34.8 SECONDS (21.0-31.0)
[2017-09-09] MEDS: STANDARD WARFARIN NOMOGRAM PO SCH (13:50)
--- NOTE | 2017-09-09 14:18 | Hospitalist Progress Note ---
Hospitalist Progress Note Date of Service Sep 09, 2017. Subjective Pt evaluation today including: conversation w/ patient, physical exam, chart review, lab review, review of studies, review of inpatient medication list Patient seen and evaluated. No acute events overnight. Has been off O2 at rest since yesterday. Reporting continued improvement with TORRES. Will obtain two step tomorrow Continues to deny chest pain. INR is mildly supratherapeutic at 3.4 at this time. Will help coordinate [facility] and coag clinic as [place]. States he lives about 60 miles from both [facility] where local VAs are. Verbalizes no other issues. Constitutional: No fever, No chills Respiratory: + dyspnea on exertion (improving daily), No dyspnea at rest Cardiovascular: No chest pain Abdomen: No pain, No nausea, No vomiting Musculoskeletal: No swelling, No calf pain Heme: No abnormal bleeding/bruising Medications Current Inpatient Medications Medications (Trade) Dose Ordered Sig/Junito Route Start Time Stop Time Status Last Admin Dose Admin Acetaminophen (Tylenol Tab) 650 mg Q4H PRN PO 09/05/17 08:15 10/05/17 08:14 Ondansetron HCl (Zofran Inj) 4 mg Q6H PRN IV 09/05/17 08:15 10/05/17 08:14 Polyethylene (Miralax Powder Packet) 17 gm DAILY PRN PO 09/05/17 08:15 10/05/17 08:14 Insulin Aspart (novoLOG ASPART) SLIDING SCALE If C... ACHS SC 09/05/17 11:00 10/05/17 10:59 09/09/17 12:42 3 UNITS Glucose (Glucose 40% Gel) 15-30 GRAMS 15 GRAMS... UD PRN PO 09/05/17 08:15 10/05/17 08:14 Glucose (Glucose Chew Tab) 4-8 Tablets 4 Tabl... UD PRN PO 09/05/17 08:15 10/05/17 08:14 Dextrose (Dextrose 50% 50ML Syringe) 25-50ML OF 50% DW IV FOR... UD PRN IV 09/05/17 08:15 10/05/17 08:14 Glucagon (Glucagon Inj) 1 mg UD PRN SQ 09/05/17 08:15 10/05/17 08:14 Oxycodone/ Acetaminophen (Percocet 5-325mg Tab) @ Q4H PRN PO 09/05/17 08:30 09/19/17 08:29 09/05/17 12:43 1 TAB Budesonide/ Formoterol Fumarate (Symbicort 160/ 4.5 Inh) 2 puffs BID INH 09/05/17 09:00 10/05/17 08:59 09/09/17 08:28 2 PUFFS Albuterol/ Ipratropium (Combivent Respimat Inh) 1 puffs QID PRN INH 09/05/17 08:30 10/05/17 08:29 Aspirin (Ecotrin Tab) 81 mg QAM PO 09/06/17 09:00 10/06/17 08:59 09/09/17 08:28 81 MG Atorvastatin Calcium (Lipitor Tab) 40 mg QAM PO 09/06/17 09:00 10/06/17 08:59 09/09/17 08:28 40 MG Objective Vital Signs Date Time Temp Pulse Resp B/P (MAP) Pulse Ox O2 Delivery O2 Flow Rate FiO2 09/09/17 12:00 Room Air 09/09/17 11:41 36.7 70 16 135/73 (93) 93 Room Air 09/09/17 08:00 Room Air 09/09/17 07:50 36.9 74 16 134/76 (95) 93 Room Air 09/09/17 04:38 36.8 72 18 157/66 (96) 91 Room Air 09/09/17 04:00 Room Air 09/09/17 00:37 36.5 80 17 168/92 (117) 93 Room Air 09/09/17 00:00 Room Air 09/08/17 20:00 96 Room Air 09/08/17 19:44 36.6 85 18 152/85 (107) 96 Room Air 09/08/17 16:00 94 Room Air 09/08/17 15:02 36.8 66 18 151/82 (105) 94 Room Air Physical Exam General Appearance: WD/WN, no apparent distress, + obese Eyes: sclerae normal ENT: hearing grossly normal Neck: supple, no JVD, trachea midline Respiratory/Chest: lungs clear, normal breath sounds, no respiratory distress, no accessory muscle use Cardiovascular: regular rate, rhythm, no gallop, no murmur Abdomen: normal bowel sounds, non tender, soft Extremities: no pedal edema Neurologic/Psychiatric: alert, oriented x 3 Skin: normal color, warm/dry Laboratory Results Last 24 Hours Test 09/08/17 16:15 09/08/17 20:21 09/09/17 05:56 09/09/17 07:41 Bedside Glucose 99 mg/dl 115 mg/dl 118 mg/dl White Blood Count 5.00 K/uL Red Blood Count 4.79 M/uL Hemoglobin 13.9 g/dL Hematocrit 41.4 % Mean Corpuscular Volume 86.4 fL Mean Corpuscular Hemoglobin 29.0 pg Mean Corpuscular Hemoglobin Concent 33.6 g/dl RDW Standard Deviation 43.5 fL RDW Coefficient of Variation 13.7 % Platelet Count 166 K/uL Mean Platelet Volume 9.3 fL Prothrombin Time 34.8 SECONDS Prothromb Time International Ratio 3.4 Activated Partial Thromboplast Time 89.1 SECONDS Partial Thromboplastin Ratio 3.4 Sodium Level 137 mmol/L Potassium Level 3.8 mmol/L Chloride Level 103 mmol/L Carbon Dioxide Level 28 mmol/L Anion Gap 5.0 mmol/L Blood Urea Nitrogen 10 mg/dl Creatinine 1.10 mg/dl Est Creatinine Clear Calc Drug Dose 141.6 ml/min Estimated GFR () 88.4 Estimated GFR (Non- 76.2 BUN/Creatinine Ratio 9.1 Random Glucose 121 mg/dl Calcium Level 8.7 mg/dl Test 09/09/17 11:30 09/09/17 12:50 Bedside Glucose 91 mg/dl Activated Partial Thromboplast Time 34.8 SECONDS Partial Thromboplastin Ratio 1.3 Assessment and Plan Mr. Fuentes is a 52 y/o with PMHx of morbid obesity, Unprovoked PE (2009) treated with Coumadin x 3 months, Unspecified Chronic Lung Diease "collapsed lungs at bases", HLD, OA, Diet Controlled T2DM who was found to have B/L PE and Saddle Embolus with associated mod-severe R heart strain Acute Possibly on Chronic Hypoxic Respiratory Failure 2/2 B/L PE and Saddle Embolus - Superimposed on Unspecified Chronic Lung Disease: Possible CTED - PESI score calculated at 113 - high risk for mortality at 30 days of 4-11% - Patient opted for heparin/Coumadin instead of transfer to tertiary care or TPA - Continues to have no signs of acute decompensation at this time - Heparin gtt stopped has had 5 days bridge - INR currently 3.4 and will hold Coumadin today and institute tomorrow - plan for [facility] for [facility] checks - Echo - EF 60-65%; flattened septum with severely dilated RV with akinesis - Two-step prior to D/C - currently off supplemental O2 - Pulmonology followed Elevated Troponins: Trended Down - Likely in setting of R heart strain and massive clot burden - ASA 81 mg daily - Did have more significant T wave inversions likely from heart strain but appears to be improving on subsequent EKGs - continues to denies CP - Given significant clot burden and heart strain - could consider outpatient cardiology follow-up for ongoing monitoring T2DM - Diet Controlled: - Continue SSI - has had some insulin coverage here and A1c is 7.7 - [facility] and [facility] - will discuss with patient tomorrow HLD: - Statin 40 mg daily Chronic Lung Disease - HAN vs Hypoventilation Syndrome - Symbicort 2 puffs BID and Combivent 1 puff QID PRN DVT Prophylaxis: Coumadin Code Status: FULL RESUSCITATION Disposition: - Possible D/C tomorrow pending clinical response and two-step prior to D/C - Outpatient cardiopulmonary rehab Discharge planning: home with home health
[2017-09-09 14:38] VITALS: BP 139/78; PULSE 68; TEMP 36.8; O2SAT 94
--- NOTE | 2017-09-09 16:00 | NUR ---
A: Unchanged assessment from previous note. VSS on room air, court recording monitor in place. OOB independently. SL noted. Tolerating diet well. Will continue to monitor.
--- NOTE | 2017-09-09 19:44 | NUR ---
ID: A&Ox4. Denies pain at this time. Denies CP/SOB. Voiding adequate amounts of urine in urinal. Ambulates independently without difficulties. SL dry and intact. Plan d/c home when stable. Will continue to monitor.
[2017-09-09 19:46] VITALS: BP 129/77; PULSE 71; TEMP 36.6; O2SAT 91
--- NOTE | 2017-09-10 | NUR ---
A: Patient is resting well. Anticipated D/C in the am. No complaints of pain or signs of distress. Remains NSR on the stenciler- no acute changes. encouraged to ring for assistance. Will continue to monitor and assess patient.
[2017-09-10 00:18] VITALS: BP 146/75; PULSE 74; TEMP 36.8; O2SAT 91
--- NOTE | 2017-09-10 04:00 | NUR ---
A: Patient is resting well. No complaints of pain or signs of distress. Remains on the lunchroom monitor- no acute changes, Will continue to monitor and assess patient.
[2017-09-10 04:27] VITALS: BP 134/67; PULSE 72; TEMP 36.8; O2SAT 92
[2017-09-10 07:03] LABS: INR 2.9 (0.9-1.1)
[2017-09-10] MEDS: ASPIRIN 81 MG ECTAB PO SCH (07:50)
[2017-09-10] MEDS: ATORVASTATIN 40 MG TAB PO SCH (07:50)
[2017-09-10] MEDS: BUDESONIDE/FORMOTEROL FUMARATE 160/4.5 60 PUFFS/INHALER INH SCH (07:50)
--- NOTE | 2017-09-10 08:00 | NUR ---
A: Upon initial assessment of patient, alert and oriented x4. Denies pain thus far this shift. VSS on room air. 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 Tolerating diet well. Call fraser within reach. Will continue to monitor.
[2017-09-10 08:02] VITALS: BP 145/80; PULSE 67; TEMP 36.7; O2SAT 93
[2017-09-10] MEDS: INSULIN ASPART 100 UNITS/ML 3 ML PEN SC SCH ×3 (08:52→17:17)
--- NOTE | 2017-09-10 11:08 | NUR ---
refrigeration houseman [facility]: I received a voicemail from Soheila Tong, a nurse from the [facility] in [place], w/ her direct phone number ([phone]). I return the call and get her voicemail. I explain that the pt will be discharged today on Coumadin and is requesting their home care visit to obtain PT and INR's the next one being due tomorrow. I ask that she return my call to verify that they can provide the service.
[2017-09-10 11:34] VITALS: BP 136/89; PULSE 66; TEMP 36.8; O2SAT 93
[2017-09-10] MEDS ORDERED: ASPI1TAB83 PO (11:51)
[2017-09-10] MEDS ORDERED: LPT40 PO (11:51)
[2017-09-10] MEDS ORDERED: CMD5 PO (11:51)
--- NOTE | 2017-09-10 11:59 | Discharge Instructions ---
Discharge Instructions Date of Service Sep 10, 2017. Admission Reason for Admission: Pulmonnary Embolism Discharge Discharge Diagnosis / Problem: (1) Pulmonary embolism VTE Date & Time Date of VTE Diagnosis: Sep 05, 2017 Time of VTE Diagnosis: 07:00 Discharge Goals Goal(s): Decrease discomfort, Improve function, Increase independence Activity Recommendations Activity Limitations: per Instructions/Follow-up section Lifting Limitations: gradually increase as tolerated Exercise/Sports Limitations: gradually increase as tolerated . Instructions / Follow-Up Instructions / Follow-Up Pulmonary Embolism: - Please continue your blood thinner and be mindful that you can bruise easily. If you cut yourself, make sure to apply firm pressure for at least 5 minutes. - Encourage light activity but take it easy, if you get short of breath when walking make sure to rest until it subsides. - CALL 911 if you develop chest pain or sudden shortness of breath - You may benefit [facility] to work on improving your breathing after this blood clot - Our counseling case manager will help set up a follow-up appointment with your doctor and get your established at the coumadin clinic. Also will try and get home services. -- Did provide a prescription for blood work just in case. Please have your INR checked on Tuesday 09/11 and 09/14 - if home services do this that is great but a prescription will be provided and you can go to where you normally go to get blood work. T2DM - Diet Controlled: - You have had some insulin coverage here and your A1c is 7.7 - recommend this be monitored with the [facility] and continue to promote weight loss and a low- carbohydrate diet to maintain sugars without medication Medication Instructions: * Warfarin is a medicine prescribed to prevent blood clots * Warfarin will thin your blood and help prevent new clots * Take your medications exactly as directed * Never skip a dose. Never take a double dose. If you miss a dose, take it as soon as you remember * It is important for your doctor to monitor your prothrombin time (PT). This is a lab test * Keep your appointment for lab tests Risk of Adverse Drug Reactions and Interactions: * Warfarin increases your risk of bleeding * The food you eat and other medications you take can affect how Warfarin works in your body * Ask your doctor about daily aspirin therapy * It is very important to talk with your doctor about all of the other medicines , antibiotics, vitamins or herbal products that you are taking * All of your medication must be approved by your doctor, including new medicines, as well as medicines you have taken before you started taking Warfarin Diet: * In order for Warfarin to work properly, it is important to keep your intake of Vitamin K as consistent as possible * You should avoid any sudden change in Vitamin K intake * Report any significant changes in your diet or weight to your doctor Call your Primary Care doctor if you experience any of the following: * Swelling or Pain in your leg * Sudden, continuous pain deep in a muscle * Pain that worsens when you are active or when you stand still for a long time * Chest Pain * Sudden Shortness of Breath * Rapid or pounding heart beat * Fainting * Dizziness * Cough with blood or bloody sputum * Sweating more than normal * Bruises * Heavy or uncontrolled bleeding * Blood in your urine, stool or vomit * Black or tarry stools Caring for Your Self at Home: * Avoid sitting, standing or lying down for long periods without moving your legs and feet * When traveling by car, stop to get out and move around at least once every 3 hours * On long airplane, train or bus rides, get up and move around when possible * If you can't get up, wiggle your toes and tighten your calves to keep your blood moving Follow Up: It is important for you to keep your follow up appointments with your medical provider. Current Hospital Diet Patient's current hospital diet: AHA Diet (Heart Healthy), Diabetes Type 2 Diet Discharge Diet Recommended Diet: AHA Diet (Heart Healthy), Diabetes Type 2 Diet Pending Studies Studies pending at discharge: yes List of pending studies: Hypercoagulable work-up (checks for conditions that make your more prone to clots) Laboratory Results Hemoglobin A1c Test 09/06/17 03:39 Range/Units Estimated Average Glucose 174 mg/dl Hemoglobin A1c 7.7 H 4.5-5.6 % Lipid Panel Test 09/06/17 03:39 Range/Units Triglycerides Level 147 0-150 mg/dl Cholesterol Level 163 0-200 mg/dl HDL Cholesterol 27 mg/dl Cholesterol/HDL Ratio 6.0 LDL Cholesterol, Calculated 107 mg/dl Medical Emergencies . Who to Call and When: Medical Emergencies: If at any time you feel your situation is an emergency, please call 911 immediately. . Non-Emergent Contact Non-Emergency issues call your: Primary Care Provider Call Non-Emergent contact if: you have a fever, your pain is concerning you, you have any medication questions . . "Provider Documentation" section prepared by Jerri Mendez. . VTE Core Measure Inpt VTE Proph given/why not?: Warfarin (Coumadin) Reason no anticoag overlap I/P: Treatment provided - N/A Reason no anticoag overlap @DC: Treatment not indicated
--- NOTE | 2017-09-10 12:00 | NUR ---
A: Unchanged assessment from previous note. 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 OOB independently. To be discharged, awaiting for ride later on this evening. To have 2 step this afternoon. Call fraser within reach. Will continue to monitor.
--- NOTE | 2017-09-10 14:00 | Discharge Summary ---
Discharge Summary Date of Service Sep 10, 2017. Discharge Summary Admission Date: Sep 05, 2017 at 08:20 Discharge Date: Sep 10, 2017 Discharge Disposition: Home Principal Diagnosis: Acute Hypoxic Respiratory Failure 2/2 Saddle PE and B/L PEs Problems/Secondary Diagnoses: 1. Morbid Obesity 2. H/O PE (2009) - Coumadin x 3 months - thought to be provoked by sedentary lifestyle 3. T2DM - Diet Controlled - A1c 7.7 4. HLD 5. OA 6. Chronic Lung Disease - Unspecified - "Collapsed Lungs at Bases" 7. Exposure to Agent [place] Procedures: CHEST CTA for AORTIC DISSECTION FINDINGS: Noncontrast imaging through the chest shows no evidence for an intramural hematoma. Normal caliber thoracic aorta with no evidence for dissection. Extensive bilateral pulmonary emboli involving the distal main pulmonary arteries and extending into the majority of the lobar and segmental pulmonary arteries. There is also a saddle embolus identified. There is associated moderate to severe right-sided heart strain. No pleural or pericardial effusions. No mediastinal or hilar lymphadenopathy. Hepatic steatosis. A 4.5 cm cyst within the left kidney. Normal adrenal glands. No fractures within the visualized osseous structures. No pneumothorax. The central airways are patent. A few groundglass densities seen within the right lower lobe posteriorly and within the lingula. This is nonspecific and could be due to mild dependent change or possibly developing pulmonary infarcts. IMPRESSION: 1. Extensive bilateral pulmonary emboli including a saddle embolus with associated right-sided heart strain. 2. A few small groundglass densities within the lingula and right lower lobe which may be due to dependent change or developing pulmonary infarcts. 3. No evidence for an aortic dissection. 4. These findings were called to Dr. Shoemaker at 7:12 AM on 09/05/2017. BILATERAL LOWER EXTREMITY VENOUS DOPPLER FINDINGS: There is normal compressibility, flow, and augmentation within the bilateral lower extremity deep venous systems. IMPRESSION: No DVT within the right or left lower extremity. BILATERAL UPPER EXTREMITY VENOUS DOPPLER FINDINGS: The internal jugular veins were nonvisualized due to patient positioning. There is normal flow within the bilateral subclavian veins. There is normal flow and compressibility within the bilateral axillary, basilic, brachial, radial, ulnar, and visualized cephalic veins. IMPRESSION: No DVT within the right or left upper extremity. Consultations: 1. Intensivists 2. Pulmonology Medication Reconciliation New Medications: Warfarin Sod (Coumadin) 5 Mg Tab 5 MG PO DAILY for 14 Days, #14 TAB Atorvastatin (Atorvastatin Calcium) 40 Mg Tab 40 MG PO QAM for 30 Days, #30 TAB Changed Medications: Aspirin (Aspirin) 81 Mg Tab 1 TAB PO DAILY for 30 Days, #30 TAB (Changed from: Aspirin (Aspirin Ec) 325 Mg Tab 325 Mg PO DAILY) Continued Medications: Budesonide/Formoterol Fumarate (Symbicort 160/4.5 Inhaler ) Aero 2 PUFFS INH BID, INHALER Ipratropium-Albuterol (Combivent Respimat) 1 Aer Aer 1 PUFFS INH QID PRN for Shortness of Breath, INH Discharge Exam Review of Systems: Constitutional: No fever, No chills ENT: No nasal symptoms, No sore throat Respiratory: + dyspnea on exertion (IMPROVING), No cough, No dyspnea at rest , No hemoptysis Cardiovascular: No chest pain, No palpitations Abdomen: No pain, No nausea, No vomiting, No diarrhea, No constipation Musculoskeletal: No swelling, No calf pain Genitourinary - Male: No dysuria Hematologic / Lymphatic: No abnormal bleeding/bruising Physical Exam: General Appearance: WD/WN, no apparent distress, + obese Eyes: sclerae normal ENT: hearing grossly normal Neck: supple, no JVD, trachea midline Respiratory/Chest: lungs clear, normal breath sounds, no respiratory distress, no accessory muscle use Cardiovascular: regular rate, rhythm, no gallop, no murmur Abdomen / GI: normal bowel sounds, non tender, soft Neurologic/Psychiatric: alert, oriented x 3 Skin: normal color, warm/dry Hospital Course ADMISSION: This patient is a 52-year-old male with a history of morbid obesity, pulmonary embolism from sedentary lifestyle in 2009 treated with Coumadin 3 months, unspecified chronic lung disease (not COPD, asthma, states "collapsed lungs at the bases"), hyperlipidemia, osteoarthritis, and diet controlled diabetes mellitus type 2, who presents to the ER with worsening shortness of breath over the last 3 days with mildly productive cough, followed by sudden onset of massive chest pain this morning. He checked his pulse ox at home and it was in the 70s. In the ER, he was found to have extensive bilateral pulmonary emboli along with a saddle embolus. He had evidence of associated moderate to severe right heart strain on CT scan, as well as evidence of right heart strain on ECG. He was acutely hypoxic in the low 80s which improved with supplemental oxygen. His blood pressure was above 100 systolic. At the time I saw him, his chest pain was a 5/10 and located in the substernal region, his shortness of breath was improved on oxygen. He reports increased right leg pain and swelling in the last few days. He is otherwise been feeling well other than his chronic respiratory issues. No recent flulike symptoms, no fevers, no abdominal pain, no new joint pains or myalgias. The surface plate finisher was consulted in the ER and his PESI score was calculated to be 113 which gives him a high risk of mortality at 30 days of 4-11%. However, because of his history of likely chronic venous thromboembolic disease, he was tolerating his massive clot burden. We discussed with the patient the option of catheter directed thrombectomy requiring transfer to a tertiary care center versus TPA, versus heparinization alone, all with similar outcomes most likely in his scenario. The patient wishes to stay at this hospital and received IV heparin. He is admitted for bilateral pulmonary emboli with saddle embolus. HOSPITAL COURSE: Mr. Fuentes was admitted for b/l subsegmental PEs and saddle PE with R-Sided Heart Strain. Surprisingly, patient tolerated clot burden well. His PESI score is [address] him at high risk of mortality at 30 days of 4-11%. He was bridged from Heparin to Coumadin and currently INR is 2.9. Patient showed no signs of acute decompensation requiring tertiary transfer or TPA. Echo reveals EF 60-65% with flattened septum with severely dilated RV with akinesis. Troponins trended and elevated but trended down. EKG showed significant T wave inversion mostly of anteroseptal leads but with subsequent EKGs showed improvement. Patient has remained chest pain free throughout admission. He will be continued on Coumadin and will [facility] and [facility] with their [facility]in clinic. Recommend PCP follow-up in the next 7-10 days. May benefit from cardiopulmonary rehab. Patient reports TORRES x 3- 4 weeks and reporting he feels how he did before this started. Two-step performed and no supplemental O2 will be needed. Of note, patient is a T2DM reporting diet control. A1c is 7.7 and recommended to continue to promote healthy low-carb diet and weight loss. May need consideration for anti- diabetics. Was started on Atorvastatin as a protective measure. Lipid panel was WNL. Patient is hemodynamically stable and optimal for D/C home with HHS and [facility]. Total Time Spent: Greater than 30 minutes This includes examination of the patient, discharge planning, medication reconciliation, and communication with other providers. Discharge Instructions Please refer to the electronic Patient Visit Report (Discharge Instructions) for additional information. Additional Copies To Sylvia Watson
[2017-09-10] MEDS ORDERED: CONSULT PHARMACY STA (14:27)
--- NOTE | 2017-09-10 14:34 | NUR ---
manager acquisition [facility]: Soheila Tong from the [facility] called and states they will have a home health nurse visit the pt tomorrow to obtain a PT and INR. She does stress the fact that the pt must obtain the initial script for Coumadin thru a retail pharmacy because the [facility] will not be able to mail it to him quickly - especially over the holiday weekend. I talk w/ the pt and he tells me that he will not be able to make it to his pharmacy in [place] this evening. His friend is providing him w/ a ride home this evening and he cannot ask him to travel 20+ miles out of their way to go to the pharmacy. I offer to have the scripts sent to a [facility] in [place] but the pt states his friend will not be able to wait around for him while he goes to the store. I talk w/ Jerri Mendez PA-C and w/ my boss, Gia Mo RN, and explain the situation. Gia approves our [facility] pharmacy to provide pt w/ 3 doses of Coumadin to take w/ him upon discharge. This will give him time to get to this pharmacy and pickle pumper the script. Jerri Mendez PA-C will enter the order for our pharmacy to dispense a 3 day supply of Coumadin. She will also send script to [facility] in [place] for a 14 day supply of Coumadin. I arrange a follow up appt for pt w/ his PCP at the [facility] in [place] on September 17 at 1:30 pm. This info was added to the DC instructions. Pt is aware of and agreeable to all the above. I informed Soheila Tong of the pt's PT and INR results today and the Coumadin dosage ordered at [facility]. I will also fax the DC summary and DC instructions to their clinic - fax # [phone] Addendum: 09/10/17 at 1449 by Soheila Chandler SERV DC instructions, DC summary, and pt demographics faxed to the [facility] in [place] as per the request above.
[2017-09-10 14:59] VITALS: BP 134/82; PULSE 73; TEMP 36.8; O2SAT 93
[2017-09-10 15:31] LABS: ANTICARDIOLIPID AB IGA <11 APL (< = 11)
[2017-09-10] MEDS ORDERED: WARFARIN SOD 5 MG TAB PO SCH (16:00)
--- NOTE | 2017-09-10 16:00 | NUR ---
A: pt sitting comfortably in bed side chair. Lung sounds clear on RA. Pt denies pain and SOB at this time. Pt awaiting ride home around 1900. 3 days of Coumadin received from pharmacy to be sent home w/ pt. Pt NSR on monitor. Call fraser within reach. Will continue to monitor.
--- NOTE | 2017-09-10 19:00 | NUR ---
A: Pt provided discharge instructions at this time. L Hand saline lock removed - dressing C/D/I -WNL. All questions answered. PO Coumadin from pharmacy given to pt. All belongings w/ pt. Pt ambulated to [employer] w/ marcia at this time.
--- NOTE | 2017-09-11 08:53 | NUR ---
Discharge planning. Patient discharged to home with [place] [facility]. I spoke with Nguyen at the [place] [facility] to confirm that patient has a follow up appt. He is scheduled today for bloodwork. Nguyen states that there has been difficulty finding a home health agency to provide service due [place] and she will speak with him today and make arrangements for him to continue to follow up at the [facility].
--- NOTE | 2017-09-11 14:58 | NUR ---
qm nurse [facility]: I received a call from Nguyen at the [facility] she asks me to review pt's past dosages of Coumadin and INR's. She needed this information to determine his ongoing dose of Coumadin. I encourage her to call me w/ any further questions.
[2017-09-11] MEDS ORDERED: WARFARIN SOD 5 MG TAB PO SCH (16:00)
== END 2017-09-10 19:37 | disposition home health service (06) | DRG 175 ==
LOC: C.EDB 06:04 → C.MED 08:20 → ENRESERV 08:42
PROVIDERS: ADMIT Family Medicine; ATTEND Internal Medicine
DX: I26.02 Saddle embolus of pulmonary artery with acute cor pulmonale (principal); J96.21 Acute and chronic respiratory failure with hypoxia; I82.91 Chronic embolism and thrombosis of unspecified vein; E66.2 Morbid (severe) obesity with alveolar hypoventilation; Z68.43 Body mass index [BMI] 50.0-59.9, adult; R79.89 Other specified abnormal findings of blood chemistry; E11.65 Type 2 diabetes mellitus with hyperglycemia; E78.5 Hyperlipidemia, unspecified; Z91.19 Patient's noncompliance with other medical treatment and regimen; M17.0 Bilateral primary osteoarthritis of knee; F17.200 Nicotine dependence, unspecified, uncomplicated; Z86.711 Personal history of pulmonary embolism; Z79.82 Long term (current) use of aspirin; Z79.899 Other long term (current) drug therapy; Z99.81 Dependence on supplemental oxygen; Z82.5 Family history of asthma and other chronic lower respiratory diseases